=== PATIENT | male | born 1935 | race Caucasian/White ===

== ENCOUNTER 2023-01-01 07:42 | Inpatient (IN) | payer MEDICARE, OTHER ==
[~2023-01-01] VITALS: Ht 182.9 cm; Wt 86.2 kg
[2023-01-01 07:00] VITALS: BP 158/87
--- NOTE | 2023-01-01 07:45 | NUR ---
RT CALLED FOR PT
--- NOTE | 2023-01-01 07:55 | NUR ---
[id number] DESATURATION "92%" HIGH FLOW NC ON SCENE. 95% RA ON ARRIVAL.[id number] DESATURATION "92%" HIGH FLOW NC ON SCENE. 95% RA ON ARRIVAL.
[2023-01-01] MEDS ORDERED: IV NS 0.9% 1,000 ML BAG IV ONE (08:00)
[2023-01-01 08:15] LABS: BASOPHILS # (AUTO) 0.1 K/uL (0.0-0.2); BASOPHILS % (AUTO) 0.5 % (0.0-2.0); HEMATOCRIT 36 % (39-51); HEMOGLOBIN 11.9 g/dL (13.5-17.5); LYMPHOCYTES % (AUTO) 9.4 % (20.0-44.0); MEAN CORPUSCULAR HGB CONC 33 g/dl (31.0-36.0); MEAN CORPUSCULAR VOLUME 100 fL (80-96); MONOCYTES # (AUTO) 0.6 K/uL (0.1-1.30); MONOCYTES % (AUTO) 6.3 % (2.0-12.0); NEUTROPHILS # (AUTO) 8.2 K/uL (1.8-8.9); NEUTROPHILS % (AUTO) 80.8 % (43.0-81.0); PLATELET COUNT (AUTO) 325 K/uL (150-450); RED BLOOD CELL COUNT(AUTO) 3.64 MIL/uL (4.5-6.0); WHITE BLOOD COUNT (AUTO) 10.2 K/uL (4.3-11.0)
[2023-01-01 08:19] LABS: CALCIUM, SERUM 8.7 mg/dL (8.5-10.1); CARBON DIOXIDE 37 mmol/L (21-32); CHLORIDE 103 mmol/L (98-107); GLUCOSE 124 mg/dL (74-106); POTASSIUM 4.1 mmol/L (3.5-5.1); SODIUM SERUM 142 mmol/L (136-145); UREA NITROGEN, BLOOD 20 mg/dL (7-18)
[2023-01-01 08:25] LABS: ALANINE AMINOTRANSFERASE 19 U/L (12-78); ALBUMIN 2.6 g/dL (3.4-5.0); ALKALINE PHOSPHATASE 75 U/L (46-116); ASPARTATE AMINOTRANSFERASE 26 U/L (15-37); BILIRUBIN,DIRECT 0.2 mg/dL (0.0-0.2); BILIRUBIN,TOTAL 0.4 mg/dL (0.2-1.0); TOTAL PROTEIN, SERUM 6.2 g/dL (6.4-8.2)
--- NOTE | 2023-01-01 08:25 | NUR ---
URINE COLLECTED AND SENT TO LAB
--- NOTE | 2023-01-01 08:26 | NUR ---
URINE SENT TO LAB
--- NOTE | 2023-01-01 08:26 | NUR ---
COVID SWAB SENT TO LAB
--- NOTE | 2023-01-01 08:28 | NUR ---
covid swab taken sent to lab
[2023-01-01 09:00] LABS: ABG BASE EXCESS 7.5 mmol/L; ABG PO2 63.9 mmHg (75.0-100.0); COHb 0.7 % (0.5-1.5); MetHb 0.2 % (0.0-1.5); O2Hb 89.5 % (94.0-97.0); SITE, ABG Left Radial; VENT MODE, BG 5 LPM NC
[2023-01-01 09:10] LABS: BILIRUBIN,URINE NEGATIVE (NEGATIVE); COLOR,URINE YELLOW (YELLOW); LEUKOCYTE ESTERASE ,URINE TRACE (NEGATIVE); NITRITE, URINE NEGATIVE (NEGATIVE); PROTEIN,URINE NEGATIVE (NEGATIVE); UGLUCOSE NEGATIVE (NEGATIVE)
[2023-01-01] MEDS ORDERED: ATOR40TA GT (09:21)
[2023-01-01] MEDS ORDERED: POLY17PO4 GT (09:21)
[2023-01-01] MEDS ORDERED: VALP250S4 GT ×2 (09:21)
[2023-01-01] MEDS ORDERED: LACT1CAP71 GT (09:21)
[2023-01-01] MEDS ORDERED: APIX2.5T GT (09:21)
[2023-01-01] MEDS ORDERED: FAMO20TA8 GT (09:21)
[2023-01-01] MEDS ORDERED: ONDA4TAB5 GT (09:21)
[2023-01-01] MEDS ORDERED: ASCO-352 GT (09:21)
[2023-01-01] MEDS ORDERED: INSU100V7 SQ (09:21)
[2023-01-01] MEDS ORDERED: QUET25TA GT ×2 (09:21)
[2023-01-01] MEDS ORDERED: BISA10SU11 RC (09:21)
[2023-01-01] MEDS ORDERED: ACET-868 GT (09:21)
[2023-01-01] MEDS ORDERED: IPRA3AMP23 IH (09:21)
[2023-01-01] MEDS ORDERED: LEVE1000 GT (09:21)
[2023-01-01] MEDS ORDERED: INSU100V3 SQ (09:21)
[2023-01-01] MEDS ORDERED: ACET100V5 NEB (09:21)
[2023-01-01] MEDS ORDERED: METO25TA20 GT (09:21)
[2023-01-01] MEDS ORDERED: ZINC50TA65 GT (09:21)
[2023-01-01] MEDS ORDERED: AMIO200T5 GT (09:21)
[2023-01-01] MEDS ORDERED: MODAFINIL GT (09:21)
[2023-01-01] MEDS ORDERED: NUT.237L30 GT (09:21)
[2023-01-01] MEDS ORDERED: SENN-261 GT (09:21)
[2023-01-01] MEDS ORDERED: ACETAMINOPHEN 325 MG TABLET PO PRN (09:30)
[2023-01-01] MEDS ORDERED: MAGNESIUM HYDROXIDE 30 ML UDC PO PRN (09:30)
[2023-01-01] MEDS ORDERED: ONDANSETRON HCL/PF 4 MG/2 ML VIAL IVP PRN (09:30)
[2023-01-01] MEDS ORDERED: ZOLPIDEM TARTRATE 5 MG TABLET PO PRN (09:30)
[2023-01-01] MEDS ORDERED: Z GUARD REMEDY 4 OZ OINT TP PRN (09:30)
[2023-01-01] MEDS ORDERED: MAG HYDROX/AL HYDROX/SIMETH 30 ML UDC PO PRN (09:30)
[2023-01-01 09:35] LABS: BACTERIA,URINE Many /HPF (None Seen); RBC,URINE 0-2 /HPF (0-2); SQUAMOUS EPITHELIAL CELL,UR Rare /HPF (None Seen)
[2023-01-01] MEDS ORDERED: CEFTRIAXONE 1GM BAG (ER ONLY) 50 ML IV ONE (10:09)
--- NOTE | 2023-01-01 10:13 | NUR ---
NO SOB NO DISTRESS
[2023-01-01] MEDS ORDERED: CEFTRIAXONE 1GM BAG (ER ONLY) 1 GM/50 ML PIGGYBACK IV ONE (10:30)
--- NOTE | 2023-01-01 11:40 | NUR ---
REPORT GIVEN TO LENA JOHNSON.
--- NOTE | 2023-01-01 14:00 | NUR ---
ASSEMBLER RADIO AND ELECTRICALBOX TRUCK DRIVER NOTES PATIENT ADMITTED FROM ER WITH THE C/O OF DESATURATING O2 SAT FROM SNIF OF 85% , DX OF ACUTE HYPOXEMIC RESPIRATORY FAILURE , CAME IN VIA GURNEY WITH FAMILY AND ER STAFF , KEPT COMFORTABLE TO BED , BODY ASSESSMENT DONE AND PHOTOS TAKEN , IV ACCESS ON THE RIGHT HAND WITH G#20 SALINE LOCK , PATENT AND INTACT , WITH MCKEE CATHETER ON WITH YELLOW COLORED URINE , ALL ORDERS NOTED , ADMISSION INTERVENTIONS STARTED . SAFETY MEASURES PROVIDED , SIDERAILS UP X 2 , KEPT DRY AND CLEAN AND WILL CONTINUE TO MONITOR ,
[2023-01-01] MEDS: LORAZEPAM INJ 2 MG/ML VIAL IV ONE ×2 (14:26→14:29)
--- NOTE | 2023-01-01 14:29 | NUR ---
RN NOTES PATIENT NOTED TO VERY AGITATED AND CLIMBING OUT OF BED , WITH ORDER OF ATIVAN IV INJECTION 1 MG X 1 AND FAMILY REFUSED HAVE THE ATIVAN
[2023-01-01] MEDS ORDERED: BISACODYL SUPP (10 MG) 10 MG/SUPP.RECT SUPP.RECT RC PRN (16:00)
[2023-01-01] MEDS ORDERED: SENNOSIDES 8.6 MG TABLET GT PRN (16:00)
[2023-01-01] MEDS ORDERED: GLUCERNA 1.2 1,000 ML BOTTLE NG PRN (16:30)
[2023-01-01] MEDS: FUROSEMIDE 40 MG/4 ML VIAL IV SCH ×2 (16:52→20:58)
[2023-01-01] MEDS ORDERED: LORAZEPAM INJ 2 MG/ML VIAL IV ONE (17:00)
[2023-01-01] MEDS ORDERED: ONDANSETRON 4 MG TAB.RAPDIS GT PRN (17:00)
[2023-01-01] MEDS: METOPROLOL TARTRATE 25 MG TABLET GT SCH (17:25)
[2023-01-01] MEDS: QUETIAPINE FUMARATE 25 MG TABLET GT SCH (17:25)
[2023-01-01] MEDS: FAMOTIDINE (20 MG) 20 MG TABLET GT SCH (17:25)
[2023-01-01] MEDS: BLOOD SUGAR DIAGNOSTIC 1 EACH STRIP IN SCH ×2 (17:26→23:56)
[2023-01-01] MEDS: VALPROIC ACID 250 MG/5 ML UDC GT SCH ×2 (17:27→22:00)
[2023-01-01] MEDS: APIXABAN 2.5 MG TABLET GT SCH (17:28)
--- NOTE | 2023-01-01 19:40 | NUR ---
POWER WASHER OPENING NOTE RECEIVED PATIENT IN BED AWAKE, AND RESTLESS. PT APHASIC, ON O2 @5 LITERS VIA NC WITH O2 SATURATION OF 96%. NO SOB OR DISTRESS NOTED. NO SIGNS AND SYMPTOMS OF PAIN AND DISCOMFORT NOTED. IV ACCESS TO RIGHT HAND WITH G#20 ,SALINE LOCKED, IV PATENT AND INTACT. PT JUST PULLED HIS G TUBE FEEDING. MD KAUR, AND CHARGE NURSE RICKEY MADE AWARE. MCKEE CATHETER INSERTED TO G-TUBE SITE TO KEEP IT FROM CLOSING UP. ORDER RECEIVED FROM FOR ATIVAN 1 MG Q6 HRS PRN. ORDER IMPLEMENTED, AND CARRIED OUT. SAFETY MEASURES PROVIDED. BED IN LOW POSITION, SIDE RAILS UP X 2, HOB ELEVATED, CALL LIGHT WITHIN REACH. WILL CONTINUE TO MONITOR PT.
[2023-01-01 20:00] VITALS: BP 136/79
--- NOTE | 2023-01-01 20:07 | NUR ---
CARD SERVICES SPECIALIST CLOSING NOTES PATIENT IN BED ASLEEP AT THIS TIME BUT AROUSABLE , APHASIC , ON O2 @5 LITERS WITH SATURATION OF 96% , NO SOB OR DISTRESS NOTED , NO SIGNS AND SYMPTOMS OF PAIN AND DIS COMFOR T NOTED , KEPT COMFORTABLE TO BED , IV ACCESS ON THE RIGHT HAND WITH G#20 SALINE LOCK , PATENT AND INTACT , MCKEE WAS DISCONTINUE AND FOR NO INDICATIONS WITH NO S/S OF BLEEDING UPON REMOVAL , ALL DUE MEDS ORDERED , LASIX GIVEN PATIENT NOTED WITH CONGESTION, G TUBE FEEDING STARTED WITH GLUCERNA 1.2@ 80CC. HOUR , 1800 BS WAS CHECK AND RESULT OF 66 AND ORANGE JUICE GIVEN AND BS CHECK WAS CHECK AGAIN ROUND 1900 AND WITH RESULT OF 122 . SAFETY MEASURES PROVIDED , SIDE RAILS UP X 2 , KEPT DRY AND CLEAN AND ENDORSED TO THE NEXT SHIFT
[2023-01-01] MEDS: IPRATROPIUM NEB FS 0.5 MG/2.5 ML AMPUL.NEB NEB SCH (20:30)
[2023-01-01] MEDS: ALBUTEROL FS 2.5 MG/0.5 ML VIAL.NEB NEB SCH (20:30)
[2023-01-01] MEDS: ACETYLCYSTEINE 10% SOLN 400 MG/4 ML VIAL HHN SCH (20:30)
[2023-01-01] MEDS: LEVETIRACETAM SOL (5 ML) 100 MG/ML UDC GT SCH (21:00)
[2023-01-01] MEDS ORDERED: CEFTRIAXONE 1 G in IV D5W 50 ML IV SCH (21:00)
[2023-01-01] MEDS: ATORVASTATIN 40 MG TABLET GT SCH (22:00)
[2023-01-01] MEDS: INSULIN GLARGINE, 100 UNIT/ML CARTRIDGE SQ SCH (22:00)
--- NOTE | 2023-01-01 22:00 | NUR ---
TECHNICAL SUPPORT INTERNSHIP NOTE PT DID RECEIVE KEPPRA JAMIE 1000 MG, DEPAKENE SYRUP 375 MG, LIPITOR 80 MG DUE TO PT PULLED HIS G-TUBE OUT. MEDS ARE TO BE GIVEN THRU G-TUBE.
--- NOTE | 2023-01-01 23:31 | NUR ---
PATIENT ACCOUNT REPRESENTATIVE NOTE PT IS VERY AGITATED, AND RESTLESS. ATIVAN ADMINISTERED TO PT FOR AGITATION. PT ON BILATERAL SOFT WRIST RESTRAINTS FOR SAFETY.
[2023-01-02] VITALS: BP 147/79
[2023-01-02] MEDS: IPRATROPIUM NEB FS 0.5 MG/2.5 ML AMPUL.NEB NEB SCH ×4 (02:20→14:24)
[2023-01-02] MEDS: ALBUTEROL FS 2.5 MG/0.5 ML VIAL.NEB NEB SCH ×4 (02:20→14:24)
[2023-01-02] MEDS: ACETYLCYSTEINE 10% SOLN 400 MG/4 ML VIAL HHN SCH ×6 (02:21→19:58)
[2023-01-02 04:00] VITALS: BP 158/77
--- NOTE | 2023-01-02 06:19 | NUR ---
RADIOLOGY ASST CLOSING NOTE LEFT PATIENT IN BED SLEEPING. PT APHASIC, ON O2 @5 LITERS VIA NC WITH O2 SATURATION OF 96%. NO SOB OR DISTRESS NOTED. NO SIGNS AND SYMPTOMS OF PAIN AND DISCOMFORT NOTED. IV ACCESS TO RIGHT HAND WITH G#20 ,SALINE LOCKED, IV PATENT AND INTACT. NO TUBE FEEDING IN PLACE. SAFETY MEASURES PROVIDED. BED IN LOW POSITION, SIDE RAILS UP X 2, HOB ELEVATED, CALL LIGHT WITHIN REACH. WILL CONTINUE TO MONITOR PT.
[2023-01-02 06:21] LABS: BASOPHILS % (AUTO) 0.4 % (0.0-2.0); EOSINOPHILS % (AUTO) 0.9 % (0.0-6.0); HEMATOCRIT 40 % (39-51); HEMOGLOBIN 12.9 g/dL (13.5-17.5); LYMPHOCYTES # (AUTO) 1.1 K/uL (0.8-4.8); LYMPHOCYTES % (AUTO) 12.4 % (20.0-44.0); MEAN CORPUSCULAR HGB CONC 33 g/dl (31.0-36.0); MEAN CORPUSCULAR VOLUME 99 fL (80-96); MONOCYTES # (AUTO) 0.7 K/uL (0.1-1.30); MONOCYTES % (AUTO) 7.4 % (2.0-12.0); NEUTROPHILS # (AUTO) 7.1 K/uL (1.8-8.9); NEUTROPHILS % (AUTO) 78.9 % (43.0-81.0); PLATELET COUNT (AUTO) 317 K/uL (150-450); RED BLOOD CELL COUNT(AUTO) 4.01 MIL/uL (4.5-6.0)
[2023-01-02 06:34] LABS: ALANINE AMINOTRANSFERASE 16 U/L (12-78); ALBUMIN 2.9 g/dL (3.4-5.0); ALKALINE PHOSPHATASE 69 U/L (46-116); ASPARTATE AMINOTRANSFERASE 27 U/L (15-37); BILIRUBIN,TOTAL 0.6 mg/dL (0.2-1.0); CALCIUM, SERUM 9.1 mg/dL (8.5-10.1); CARBON DIOXIDE 38 mmol/L (21-32); CHLORIDE 102 mmol/L (98-107); CREATININE 0.9 mg/dL (0.6-1.3); GLUCOSE 111 mg/dL (74-106); MAGNESIUM 2.1 mg/dL (1.8-2.4); PHOSPHORUS 2.9 mg/dL (2.5-4.9); POTASSIUM 3.2 mmol/L (3.5-5.1); SODIUM SERUM 146 mmol/L (136-145); UREA NITROGEN, BLOOD 17 mg/dL (7-18)
[2023-01-02 07:00] VITALS: BP 150/84
[2023-01-02] MEDS ORDERED: PANTOPRAZOLE 40 MG TABLET.DR PO SCH (07:30)
--- NOTE | 2023-01-02 07:48 | NUR ---
RN OPENING NOTE RECEIVED PT AWAKE, A/O X0, APHASIC. PT IS ON 5L OF O2 VIA NC, NO S/S OF SOB OR DISTRESS NOTED. NO S/S OF PAIN VIA FLACC NOTED. IV ACCESS AT RIGHT HAND #20 ,SALINE LOCKED, IV PATENT AND INTACT. NO TUBE FEEDING IN PLACE, PER PM RN, PT PULLED G-TUBE AT BEGINNING OF PM SHIFT, MD AND TURNAROUND ENGINEER AWARE. PT ON BILATERAL SOFT RESTRAINTS, NO SKIN ISSUES NOTED ON BOTH WRIST. SAFETY MEASURES IN PLACE, HOB ELEVATED, CALL LIGHT WITHIN REACH, WILL CONT WITH PLAN OF CARE DURING SHIFT Addendum: 01/02/23 at 0753 by RICH DIALLO RN TELE MONITOR READS SR, HR= 69 Addendum: 01/02/23 at 0759 by RICH DIALLO RN MCKEE CATH PLACED ON THE G-TUBE SITE FOR NOW TO KEEP PATENT
[2023-01-02] MEDS ORDERED: MAGNESIUM HYDROXIDE 30 ML UDC GT PRN (08:20)
[2023-01-02] MEDS ORDERED: ZOLPIDEM TARTRATE 5 MG TABLET GT PRN (08:20)
[2023-01-02] MEDS ORDERED: MAG HYDROX/AL HYDROX/SIMETH 30 ML UDC GT PRN (08:21)
[2023-01-02] MEDS ORDERED: ACETAMINOPHEN 650 MG/20.3 ML UDC GT PRN (08:22)
--- NOTE | 2023-01-02 08:27 | NUR ---
WOUND CARE CONSULT: PT PRESENTS WITH SOME SACRAL SCARRING AND SCROTAL REDNESS, PRESENT ON ADMISSION. RECOMMENDATIONS MADE FOR SKIN PROTECTION. DISCUSSED WITH NURSING STAFF. MD IN AGREEMENT WITH PLAN OF CARE.
[2023-01-02] MEDS: ASCORBIC ACID 500 MG TABLET GT SCH (09:00)
[2023-01-02] MEDS: POLYETHYLENE GLYCOL 3350 17 GM POWD.PACK GT SCH (09:00)
[2023-01-02] MEDS: APIXABAN 2.5 MG TABLET GT SCH ×2 (09:00→16:42)
[2023-01-02] MEDS: PANTOPRAZOLE 40 MG/PACK PACK GT SCH (09:00)
[2023-01-02] MEDS: LEVETIRACETAM SOL (5 ML) 100 MG/ML UDC GT SCH ×2 (09:00→21:00)
[2023-01-02] MEDS: FAMOTIDINE (20 MG) 20 MG TABLET GT SCH ×2 (09:00→16:43)
[2023-01-02] MEDS: AMIODARONE HCL 200 MG TABLET GT SCH (09:00)
[2023-01-02] MEDS: ZINC SULFATE 220 MG CAPSULE GT SCH (09:00)
[2023-01-02] MEDS: LACTOBACILLUS RHAMNOSUS GG 1 EACH CAP.SPRINK GT SCH (09:00)
[2023-01-02] MEDS: MODAFINIL 100 MG TABLET GT SCH (09:00)
[2023-01-02] MEDS: VALPROIC ACID 250 MG/5 ML UDC GT SCH ×3 (09:00→22:00)
[2023-01-02] MEDS: METOPROLOL TARTRATE 25 MG TABLET GT SCH ×2 (09:00→16:43)
[2023-01-02] MEDS: QUETIAPINE FUMARATE 25 MG TABLET GT SCH ×2 (09:00→17:35)
[2023-01-02] MEDS ORDERED: POTASSIUM CHLORIDE 20 MEQ POWDER PACKET GT ONE (09:00)
--- NOTE | 2023-01-02 09:24 | NUR ---
RN NOTES: PT G-TUBE DISLODGED, ASKED PHARM AND MD TO CHANGE GT MEDS TO IV IF POSSIBLE, PENDING.
[2023-01-02] MEDS: POTASSIUM CL. PREMIX PERIPHER. 50 ML IV SCH ×4 (10:02→14:01)
[2023-01-02] MEDS: LORAZEPAM INJ 2 MG/ML VIAL IV PRN ×2 (11:08→17:20)
[2023-01-02] MEDS: BLOOD SUGAR DIAGNOSTIC 1 EACH STRIP IN SCH ×3 (11:45→23:52)
[2023-01-02 12:00] VITALS: BP 152/75
--- NOTE | 2023-01-02 13:05 | NUR ---
RN NOTES: PT TRANSPORTED TO SURGERY VIA GURNEY BY OR STAFF, PT ASLEEP BUT EASILY ROUSED, VITALS WNL, O2 SAT @ 97% ON 5 L O2, WILL STAY AT PT'S ROOM.
--- NOTE | 2023-01-02 13:44 | NUR ---
TX NOT GIVEN DUE TO PATIENT NOT IN THE UNIT. PATIENT WENT FOR SURGERY ACCORDING PATIENT FAMILY MEMBER. Addendum: 01/02/23 at 1345 by SELVIN COVARRUBIAS RT Amended: Links added.
--- NOTE | 2023-01-02 14:00 | NUR ---
RN NOTES: PT CAME BACK TO UNIT VIA GURCHRISTOPH, PROCEDURE HAS BEEN RESCHEDULED TO 01/03/23 WITH NO SPECIFIC TIME, MADE CLERICAL SUPERVISOR AND MD AWARE.
[2023-01-02] MEDS ORDERED: ANESTHESIA TRAY IN PYXIS 1 EA TRAY MC ONE (14:33)
[2023-01-02 16:00] VITALS: BP 161/95
[2023-01-02] MEDS ORDERED: hydrALAZINE HCL IV 20 MG VIAL IV PRN (17:00)
[2023-01-02] MEDS ORDERED: IV D5/ 0.9% NACL 1,000 ML IV PRN (17:00)
--- NOTE | 2023-01-02 17:05 | NUR ---
RN NOTES: RN PULLED ATIVAN VIAL, COUNTED ALL VIALS AND RECORDED PARTIAL WASTE WITH ANOTHER RN. ONCE FRIDGE IS CLOSED, THIS RN DID NOT REALIZE THAT A BAG OF ATIVAN VIALS WAS LEFT OUTSIDE ON TOP OF COUNTER. UPON REALIZING THIS RN TRIED TO PULL ANOTHER ONE IN AN ATTEMPT TO RETURN THE BAG WITH ATIVAN VIALS IN THE FRIDGE HOWEVER THE SYSTEM PROMPTED TO DO PARTIAL WASTE AGAIN. RN DID NOT PULL ANOTHER VIAL INSTEAD RETURNED ALL THE BAG WITH VIALS. RN CALLED PHARMACIST TO ASSIST WITH ERROR. PER PHARMACIST, GLOBAL PROGRAM DIRECTOR NEEDS TO DO CYCLE COUNT HOWEVER CHARGE DOESN'T HAVE AUTHORIZATION AT THE MOMENT. WE WILL WAIT FOR PM GLOBAL PROGRAM DIRECTOR TO DO CYCLE COUNT, MADE PHARMACIST AWARE. FIRST TRANSACTION, THERE WERE 11 VIALS, PULLED 1, LEAVING 10 VIALS. SECOND TRANSACTION THERE WERE 10 VIALS, PULLED 0, STILL LEAVING 10 VIALS HOWEVER THE SYSTEM IS SHOWING THERE ARE ONLY 9 VIALS LEFT PENDING CYCLE COUNT AFTER GLOBAL PROGRAM DIRECTOR REPORT.
--- NOTE | 2023-01-02 19:07 | NUR ---
RECEIVED PT AWAKE, A/O X0, APHASIC. PT IS ON 5L OF O2 VIA NC, NO S/S OF SOB OR DISTRESS NOTED. NO S/S OF PAIN VIA FLACC NOTED. TELE MONITOR READS SR, HR= 69. IV ACCESS AT RIGHT HAND #20, RUNNING D5NS @ 75ML/HR. NO TUBE FEEDING IN PLACE, PER PM RN, PT PULLED G-TUBE AT BEGINNING OF PM SHIFT, MCKEE CATH PLACED ON THE G-TUBE SITE FOR NOW TO KEEP PATENT MD AND HARDWARE TEST ENGINEER AWARE. PT ON BILATERAL SOFT RESTRAINTS, NO SKIN ISSUES NOTED ON BOTH WRIST. KEPT PT CLEAN, DRY AND COMFORTABLE. SAFETY MEASURES IN PLACE, HOB ELEVATED, CALL LIGHT WITHIN REACH, ENDORSE TO PM SHIFT. Addendum: 01/02/23 at 1917 by RICH DIALLO RN SHEEPSKIN PICKLER CLOSING NOTES:
--- NOTE | 2023-01-02 19:30 | NUR ---
DAY PORTER OPENING NOTE RECEIVED PATIENT IN BED AWAKE, AND RESTLESS. PT APHASIC, ON O2 @5 LITERS VIA NC WITH O2 SATURATION OF 95%. NO SOB OR DISTRESS NOTED. NOTED RESTLESS, AND MOVING CONSTANTLY. IV ACCESS TO LEFT HAND WITH G#20 RUNNING D5 NS AT 75 ML/HR. PATENT AND INTACT. ALL SAFETY MEASURES PROVIDED.HEAD OF THE BED ELEVATED. BILATERAL WRIST RESTRAIN IN PLACE . NO GTUBE IN PLACE. AWAITING FOR GTUBE PLACEMENT. SKIN CHECKS DONE FREQUENTLY. BED IN LOW POSITION, LOCKED. SIDE RAILS UP X 2, HOB ELEVATED, CALL LIGHT WITHIN REACH. WILL CONTINUE TO MONITOR PT.
--- NOTE | 2023-01-02 20:56 | NUR ---
RN NOTES PATIENT ANXIOUS AND MOVED CONSTANTLY. RESTLESS. ATIVAN WAS GIVEN AT 1720. NOT EFFECTIVE. ORDER FOR ATIVAN IS 1 MG PRN EVERY 6 HOURS. INFORMED DNP VIC, NEW ORDER OF ATIVAN 1 MG IV ONCE GIVEN AT 2055. ORDER NOTED AND CARRIED OUT.
[2023-01-02] MEDS ORDERED: LORAZEPAM INJ 2 MG/ML VIAL IV ONE (21:00)
[2023-01-02] MEDS: CEFEPIME 1 GM in IV D5W 50 ML IV SCH (21:09)
[2023-01-02] MEDS: INSULIN GLARGINE, 100 UNIT/ML CARTRIDGE SQ SCH (22:00)
[2023-01-02] MEDS: ATORVASTATIN 40 MG TABLET GT SCH (22:00)
--- NOTE | 2023-01-02 22:00 | NUR ---
RN NOTES HELD LANTUS 30 UNITS. BLOOD SUGAR CHECKED IT 142. NO GTUBE FEEDING.
[2023-01-02] MEDS: VANCOMYCIN 1 GM in IV D5W 250 ML IV SCH (22:20)
--- NOTE | 2023-01-03 | NUR ---
RN NOTES HELD REGULAR INSULIN ADMINISTARTION, BLOOD SUGAR RESULT WAS 156, PATIENT NOT GETTING GTUBE FEEDING.
[2023-01-03] MEDS: ALBUTEROL FS 2.5 MG/0.5 ML VIAL.NEB NEB SCH ×4 (01:15→20:33)
[2023-01-03] MEDS: ACETYLCYSTEINE 10% SOLN 400 MG/4 ML VIAL HHN SCH ×4 (01:15→20:33)
[2023-01-03] MEDS: IPRATROPIUM NEB FS 0.5 MG/2.5 ML AMPUL.NEB NEB SCH ×4 (01:15→20:33)
[2023-01-03] MEDS: CEFEPIME 1 GM in IV D5W 50 ML IV SCH ×3 (04:06→20:15)
[2023-01-03] MEDS: BLOOD SUGAR DIAGNOSTIC 1 EACH STRIP IN SCH ×4 (05:35→23:33)
[2023-01-03 06:38] LABS: BASOPHILS % (AUTO) 0.3 % (0.0-2.0); EOSINOPHILS % (AUTO) 3.3 % (0.0-6.0); HEMATOCRIT 40 % (39-51); HEMOGLOBIN 13.1 g/dL (13.5-17.5); LYMPHOCYTES # (AUTO) 1.2 K/uL (0.8-4.8); LYMPHOCYTES % (AUTO) 11.7 % (20.0-44.0); MEAN CORPUSCULAR HGB CONC 33 g/dl (31.0-36.0); MEAN CORPUSCULAR VOLUME 100 fL (80-96); MONOCYTES # (AUTO) 0.8 K/uL (0.1-1.30); MONOCYTES % (AUTO) 7.9 % (2.0-12.0); NEUTROPHILS # (AUTO) 7.9 K/uL (1.8-8.9); NEUTROPHILS % (AUTO) 76.8 % (43.0-81.0); PLATELET COUNT (AUTO) 316 K/uL (150-450); RED BLOOD CELL COUNT(AUTO) 4.01 MIL/uL (4.5-6.0); WHITE BLOOD COUNT (AUTO) 10.3 K/uL (4.3-11.0)
[2023-01-03 07:00] LABS: CALCIUM, SERUM 9.1 mg/dL (8.5-10.1); CREATININE 0.8 mg/dL (0.6-1.3); MAGNESIUM 2.1 mg/dL (1.8-2.4); PHOSPHORUS 2.4 mg/dL (2.5-4.9); POTASSIUM 3.4 mmol/L (3.5-5.1)
--- NOTE | 2023-01-03 07:45 | NUR ---
OPENING RESIDENTIAL ROOFER HELPER NOTE Received patient asleep, but easily arousable in bed with tele monitor showing sinus rythym in the 70s. Patient is restrained at both wrists with soft wrist restraints, bed brakes locked, three bed side rails up and padded with blankets, bed in lowest position; and with bed alarm on. Patient seems entirely disoriented, not even responding to his name. 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 Night nurse reported that plan is to try again today to insert a new G-tube surgically, which was attempted,but not successful yesterday. Maintaining NPO status. Speech therapy swallow evaluation pending to see if patient might be able to swallow meds. Will continue to care for patient and monitor as per hospitalist provider POC.
--- NOTE | 2023-01-03 07:45 | NUR ---
MOBILE SALES ASSISTANT CLOSING NOTE PATIENT IN BED AWAKE, AND RESTLESS. PT APHASIC, ON O2 @5 LITERS VIA NC WITH O2 SATURATION OF 95%. NO SOB OR DISTRESS NOTED. NOTED RESTLESS, AND MOVING CONSTANTLY. IV ACCESS TO LEFT HAND WITH G#20 RUNNING D5 NS AT 75 ML/HR. PATENT AND INTACT. ALL SAFETY MEASURES PROVIDED.HEAD OF THE BED ELEVATED. BILATERAL WRIST RESTRAIN IN PLACE . NO GTUBE IN PLACE. AWAITING FOR GTUBE PLACEMENT. SKIN CHECKS DONE FREQUENTLY. BED IN LOW POSITION, LOCKED. SIDE RAILS UP X 2, HOB ELEVATED, CALL LIGHT WITHIN REACH. WILL ENDORSE FOR LILLIAN.
[2023-01-03 08:00] VITALS: BP 163/107
[2023-01-03] MEDS: VALPROIC ACID 250 MG/5 ML UDC GT SCH ×3 (09:00→21:40)
[2023-01-03] MEDS: LACTOBACILLUS RHAMNOSUS GG 1 EACH CAP.SPRINK GT SCH ×2 (09:00→17:47)
[2023-01-03] MEDS: APIXABAN 2.5 MG TABLET GT SCH ×2 (09:00→18:13)
[2023-01-03] MEDS: AMIODARONE HCL 200 MG TABLET GT SCH (09:00)
[2023-01-03] MEDS: QUETIAPINE FUMARATE 25 MG TABLET GT SCH ×2 (09:00→17:47)
[2023-01-03] MEDS ORDERED: POTASSIUM CHLORIDE 20 MEQ POWDER PACKET NG SCH (09:30)
[2023-01-03] MEDS: VANCOMYCIN 1 GM in IV D5W 250 ML IV SCH ×2 (10:55→21:39)
[2023-01-03] MEDS: LORAZEPAM INJ 2 MG/ML VIAL IV PRN (10:55)
[2023-01-03] MEDS ORDERED: DIATR MEGLU/DIATRIZOATE SODIUM 30 ML BOTTLE (GASTROGRAPHIN) ONE (14:27)
--- NOTE | 2023-01-03 14:30 | NUR ---
ASSISTANT PROGRAM MANAGER UPDATE NOTE Patient failed swallow evaluation with speech therapy. Patient very restless in bed, crying out, moaning, trying to break free of his restraints. MD ordered STAT KUB abd x-ray to confirm placement of catheter already existing in stoma because surgical G-tube placement not scheduled until tomorrow and patient unable to get needed medications for keeping calm without a g-tube access and attempts of IV meds have not succeeded. Plan is to use existing stoma if placement viable per x-ray in order to give patient medications to keep calm. school bus monitor discontinued by MD. Safety precautions maintained with bed side rails up x 3 and padded, bilateral soft wrist restraints on, bed brakes locked, bed alarm on, and frequent checking by staff every 30 minutes or more. Family at bedside ( and two daughters). Will continue to care for and monitor patient per MD POC.
[2023-01-03 16:00] VITALS: BP 144/69
--- NOTE | 2023-01-03 16:15 | NUR ---
MS RN UPDATE NOTE KUB x- ray confirms that catheter is in stomach. Will give PO scheduled meds via G-tube site catheter and start patient on limited tube feeding until midnight.
[2023-01-03] MEDS: LEVETIRACETAM SOL (5 ML) 100 MG/ML UDC GT SCH (17:37)
[2023-01-03] MEDS: ASCORBIC ACID 500 MG TABLET GT SCH (17:44)
[2023-01-03] MEDS: FAMOTIDINE (20 MG) 20 MG TABLET GT SCH ×2 (17:44→18:12)
[2023-01-03] MEDS: NEUTRA PHOS 1 POWD.PACKET PO SCH ×2 (17:44→18:12)
[2023-01-03] MEDS: ZINC SULFATE 220 MG CAPSULE GT SCH (17:44)
[2023-01-03] MEDS: MODAFINIL 100 MG TABLET GT SCH (17:44)
[2023-01-03] MEDS: POLYETHYLENE GLYCOL 3350 17 GM POWD.PACK GT SCH (17:46)
[2023-01-03] MEDS: PANTOPRAZOLE 40 MG/PACK PACK GT SCH (17:47)
[2023-01-03] MEDS: METOPROLOL TARTRATE 25 MG TABLET GT SCH (17:48)
--- NOTE | 2023-01-03 18:05 | NUR ---
MS RN NOTE Checked placement of g-tube site catheter with syringe air insertion auscultated with stethoscope positive for placement. Patient tolerated well the administration of 17:00hrs /18:00 hours scheduled medications with 100mLs of water via G -tube site at 18:00 hours. Only 30 mLs residual. Aspiration precautions maintained with patient's body at top of bed and HOB elevated 45 degrees. All safety precautions maintained as mentioned in previous notes today. Will start tube feeding at 19:00 hours.
[2023-01-03] MEDS: GLUCERNA 1.2 1,000 ML BOTTLE NG PRN (18:51)
--- NOTE | 2023-01-03 19:21 | NUR ---
MS RN CLOSING NOTE Patient observed to be sleeping comfortably in bed, snoring peacefully with even respirations, without any signs of distress. Started tube feeding of Glucerna 1.2 @ 30 mLs/hr x 5 hours, with plan to evaluate patient's ability to tolerate. Safety precautions maintained as previously noted in today's notes. PIV to left writst still intact, patent, receiving IV fluids and IV antibiotics. Will endorse POC to night nurse Ani for LILLIAN.
--- NOTE | 2023-01-03 19:52 | NUR ---
MS RN OPENING NOTES RECEIVED PATIENT ON BED SLEEPING, ON O2 @5 LITERS VIA NC WITH O2 SATURATION OF 95%. NO SOB OR DISTRESS NOTED. IV ACCESS TO LEFT HAND WITH G#20 RUNNING D5 NS AT 75 ML/HR. PATENT AND INTACT. BILATERAL WRIST RESTRAIN IN PLACE. AWAITING FOR GTUBE PLACEMENT. SKIN CHECKS DONE FREQUENTLY. SAFETY MEASURES PROVIDED; HEAD OF THE BED ELEVATED, BED LOCKED IN IN LOWEST POSITION, CALL LIGHT WITHIN REACH, SIDE RAILS UP X 2.
[2023-01-03 20:00] VITALS: BP 141/99
[2023-01-03] MEDS: ATORVASTATIN 40 MG TABLET GT SCH (21:39)
[2023-01-03] MEDS: INSULIN GLARGINE, 100 UNIT/ML CARTRIDGE SQ SCH (22:00)
--- NOTE | 2023-01-03 22:00 | NUR ---
RN NOTES BLOOD SUGAR RESULT 133. HELD INSULIN. NPO FOR SURGERY
--- NOTE | 2023-01-03 23:10 | NUR ---
RN NOTES PRN AMBIEN 5 MG GIVEN PER ORDER VIA GTUBE FOR INSOMNIA AT 2310.
[2023-01-04] MEDS: ACETAMINOPHEN 650 MG/20.3 ML UDC GT PRN (01:21)
[2023-01-04] MEDS: IPRATROPIUM NEB FS 0.5 MG/2.5 ML AMPUL.NEB NEB SCH ×4 (01:30→20:22)
[2023-01-04] MEDS: ALBUTEROL FS 2.5 MG/0.5 ML VIAL.NEB NEB SCH ×4 (01:30→20:22)
[2023-01-04] MEDS: ACETYLCYSTEINE 10% SOLN 400 MG/4 ML VIAL HHN SCH ×4 (01:30→20:22)
[2023-01-04] MEDS: CEFEPIME 1 GM in IV D5W 50 ML IV SCH ×3 (04:44→21:16)
[2023-01-04] MEDS: LEVETIRACETAM SOL (5 ML) 100 MG/ML UDC GT SCH ×2 (05:00→17:21)
[2023-01-04] MEDS: METOPROLOL TARTRATE 25 MG TABLET GT SCH ×2 (05:00→17:21)
--- NOTE | 2023-01-04 05:14 | NUR ---
RN NOTES MEDICATIONS FOR G-TUBE ON HOLD FOR SURGERY.
[2023-01-04] MEDS: BLOOD SUGAR DIAGNOSTIC 1 EACH STRIP IN SCH ×4 (05:16→23:57)
--- NOTE | 2023-01-04 06:39 | NUR ---
MS RN CLOSING NOTES PATIENT ON BED SLEEPING, ON O2 @5 LITERS VIA NC WITH O2 SATURATION OF 97%. NO SOB OR DISTRESS NOTED. IV ACCESS TO LEFT HAND WITH G#20 RUNNING D5 NS AT 75 ML/HR. PATENT AND INTACT. BILATERAL WRIST RESTRAIN IN PLACE. SKIN CHECKS DONE FREQUENTLY, AWAITING FOR G-TUBE PLACEMENT. ALL DUE MEDICATIONS GIVEN, ALL NEEDS ARE MET, SAFETY MEASURES PROVIDED; HEAD OF THE BED ELEVATED, BED LOCKED IN IN LOWEST POSITION, CALL LIGHT WITHIN REACH, SIDE RAILS UP X 2, WILL ENDORSE TO NEXT SHIFT FOR CONTINUITY OF CARE.
[2023-01-04 07:11] LABS: BASOPHILS # (AUTO) 0.1 K/uL (0.0-0.2); BASOPHILS % (AUTO) 0.6 % (0.0-2.0); EOSINOPHILS % (AUTO) 8.2 % (0.0-6.0); HEMATOCRIT 40 % (39-51); HEMOGLOBIN 12.8 g/dL (13.5-17.5); LYMPHOCYTES # (AUTO) 1.7 K/uL (0.8-4.8); LYMPHOCYTES % (AUTO) 15.6 % (20.0-44.0); MEAN CORPUSCULAR HGB CONC 32 g/dl (31.0-36.0); MEAN CORPUSCULAR VOLUME 100 fL (80-96); MONOCYTES # (AUTO) 0.8 K/uL (0.1-1.30); MONOCYTES % (AUTO) 7.6 % (2.0-12.0); NEUTROPHILS # (AUTO) 7.2 K/uL (1.8-8.9); PLATELET COUNT (AUTO) 305 K/uL (150-450); WHITE BLOOD COUNT (AUTO) 10.6 K/uL (4.3-11.0)
[2023-01-04 07:23] LABS: CALCIUM, SERUM 9.1 mg/dL (8.5-10.1); CARBON DIOXIDE 37 mmol/L (21-32); CHLORIDE 105 mmol/L (98-107); CREATININE 0.8 mg/dL (0.6-1.3); GLUCOSE 128 mg/dL (74-106); MAGNESIUM 2.3 mg/dL (1.8-2.4); PHOSPHORUS 3.3 mg/dL (2.5-4.9); POTASSIUM 3.5 mmol/L (3.5-5.1); SODIUM SERUM 144 mmol/L (136-145); UREA NITROGEN, BLOOD 17 mg/dL (7-18)
--- NOTE | 2023-01-04 07:29 | NUR ---
MS RN OPENING NOTES RECEIVED PT IN BED. A/O X 0, NON-VERBAL. WITH O2 VIA NC AT 5LPM, TOLERATING WELL, NO SIGNS OF ACUTE RESPIRATORY DISTRESS. WITH IV ACCESS AT LEFT HAND #20G, SL, C/D/I. WITH SOFT RESTRAINTS IN THE BILATERAL UPPER EXTREMITIES, PULSED CHECKED. NO PAIN/DISCOMFORT NOTED AT THIS TIME. WITH G-TUBE, C/D/I. PT ON NPO AT THIS TIME. SAFETY MEASURES IN PLACE: BED LOCKED AND IN LOWEST POSITION, CALL LIGHT AND TRAY TABLE WITHIN EASY REACH, SIDE RAILS X 3. WILL CONTINUE TO MONITOR.
[2023-01-04 08:00] VITALS: BP 108/64
[2023-01-04] MEDS: APIXABAN 2.5 MG TABLET GT SCH ×2 (08:43→16:27)
[2023-01-04] MEDS: AMIODARONE HCL 200 MG TABLET GT SCH (08:43)
[2023-01-04] MEDS: VALPROIC ACID 250 MG/5 ML UDC GT SCH ×4 (08:43→21:16)
[2023-01-04] MEDS: QUETIAPINE FUMARATE 25 MG TABLET GT SCH ×4 (08:44→21:16)
[2023-01-04] MEDS: FAMOTIDINE (20 MG) 20 MG TABLET GT SCH ×2 (08:44→16:26)
[2023-01-04] MEDS: POLYETHYLENE GLYCOL 3350 17 GM POWD.PACK GT SCH (08:44)
[2023-01-04] MEDS: ZINC SULFATE 220 MG CAPSULE GT SCH (08:44)
[2023-01-04] MEDS: MODAFINIL 100 MG TABLET GT SCH (08:44)
[2023-01-04] MEDS: ASCORBIC ACID 500 MG TABLET GT SCH (08:44)
[2023-01-04] MEDS: PANTOPRAZOLE 40 MG/PACK PACK GT SCH (08:44)
[2023-01-04] MEDS: VANCOMYCIN 1 GM in IV D5W 250 ML IV SCH ×2 (09:52→10:00)
--- NOTE | 2023-01-04 13:45 | NUR ---
RN NOTES CALLED DR. PEREZ TO REFER G-TUBE PLACEMENT, SAID HE CANNOT DO THE INSERTION TODAY AND NOT SURE IF HE CAN COME TOMORROW. CHARGE NURSE AND DR. KAUR INFORMED. FEEDING OF GLUCERNA 1.2 AT 30ML/HR RESUMED.
[2023-01-04 16:00] VITALS: BP 131/77
--- NOTE | 2023-01-04 18:50 | NUR ---
MS RN CLOSING NOTES PT RESTING IN BED. A/O X 0, NON-VERBAL. MAINTAINED O2 VIA NC AT 5LPM, TOLERATING WELL, NO SIGNS OF ACUTE RESPIRATORY DISTRESS WITHIN THE SHIFT. IV ACCESS AT LEFT HAND #20G, SL, C/D/I. MAINTAINED SOFT RESTRAINTS IN THE BILATERAL UPPER EXTREMITIES, PULSED CHECKED REGULARLY, NO REDNESS. TURNED AND REPOSITIONED PT. NO PAIN/DISCOMFORT NOTED WITHIN THE SHIFT. WITH G-TUBE WITH ONGOING FEEDING OF GLUCERNA 1.2 AT 30ML/HR, TOLERATING WELL. NEEDS ATTENDED. SAFETY MEASURES IN PLACE: BED LOCKED AND IN LOWEST POSITION, CALL LIGHT AND TRAY TABLE WITHIN EASY REACH, SIDE RAILS X 3. WILL ENDORSE LILLIAN TO SETTER INDUCTION HEATING EQUIPMENT.
--- NOTE | 2023-01-04 19:30 | NUR ---
MS RN OPENING NOTE PT RESTING IN BED, RESPONSIVE TO TACTILE STIMULI. A/O X0, CONFUSED, MONTSERRATIAN SPEAKING. PT ON O2 @ 5 LPM VIA NC, TOLERATING WELL. NO SOB OR S/S OF RESPIRATORY DISTRESS. BREATHING EVEN AND UNLABORED. IV ACCESS L HAND 20G, INTACT AND PATENT. WITH BILATERAL SOFT WRIST RESTRAINTS, CIRCULATION CHECKED AND WNL. WITH GTUBE RUNNING GLUCERNA 1.2 @ 30 ML/HR, TOLERATING WELL. SAFETY PRECAUTIONS IN PLACE. BED IN LOWEST LOCKED POSITION, HOB ELEVATED, SIDE RAILS UP X3, AND CALL LIGHT AND TABLE WITHIN REACH. ALL NEEDS MET AT THIS TIME.
[2023-01-04 20:00] VITALS: BP 136/77
[2023-01-04] MEDS: ATORVASTATIN 40 MG TABLET GT SCH (21:15)
[2023-01-04] MEDS: INSULIN GLARGINE, 100 UNIT/ML CARTRIDGE SQ SCH (22:00)
[2023-01-04] MEDS: VANCOMYCIN 1.25 GM in IV D5W 250 ML IV SCH (22:15)
[2023-01-05] MEDS: ACETAMINOPHEN 650 MG/20.3 ML UDC GT PRN (00:04)
--- NOTE | 2023-01-05 00:04 | NUR ---
RN NOTE ADMINISTERED TYLENOL 650 MG FOR MILD PAIN. PT NOTICED WITH FACIAL GRIMACING AND MOANING. REPOSITIONED AND MADE COMFORTABLE IN BED. ALL NEEDS MET AT THIS TIME.
[2023-01-05] MEDS: IPRATROPIUM NEB FS 0.5 MG/2.5 ML AMPUL.NEB NEB SCH ×4 (01:39→20:17)
[2023-01-05] MEDS: ACETYLCYSTEINE 10% SOLN 400 MG/4 ML VIAL HHN SCH ×4 (01:39→20:17)
[2023-01-05] MEDS: ALBUTEROL FS 2.5 MG/0.5 ML VIAL.NEB NEB SCH ×4 (01:39→20:17)
[2023-01-05] MEDS: LORAZEPAM INJ 2 MG/ML VIAL IV PRN ×2 (03:33→14:50)
--- NOTE | 2023-01-05 03:33 | NUR ---
RN NOTE PT SHOUTING AND RESTLESS, KICKING LEGS IN THE AIR, AND PULLING AGAINST RESTRAINTS. ADMINISTERED ATIVAN 1 MG FOR ANXIETY ORDERED. MADE COMFORTABLE IN BED. ALL NEEDS MET AT THIS TIME.
[2023-01-05] MEDS: CEFEPIME 1 GM in IV D5W 50 ML IV SCH (04:47)
[2023-01-05] MEDS: METOPROLOL TARTRATE 25 MG TABLET GT SCH ×2 (04:48→17:24)
[2023-01-05] MEDS: LEVETIRACETAM SOL (5 ML) 100 MG/ML UDC GT SCH ×2 (04:48→17:24)
[2023-01-05] MEDS: BLOOD SUGAR DIAGNOSTIC 1 EACH STRIP IN SCH ×3 (05:20→17:48)
[2023-01-05 06:21] LABS: BASOPHILS # (AUTO) 0.1 K/uL (0.0-0.2); BASOPHILS % (AUTO) 0.8 % (0.0-2.0); EOSINOPHILS % (AUTO) 7.2 % (0.0-6.0); HEMATOCRIT 39 % (39-51); HEMOGLOBIN 12.8 g/dL (13.5-17.5); LYMPHOCYTES # (AUTO) 1.3 K/uL (0.8-4.8); LYMPHOCYTES % (AUTO) 13.9 % (20.0-44.0); MEAN CORPUSCULAR HGB CONC 33 g/dl (31.0-36.0); MEAN CORPUSCULAR VOLUME 100 fL (80-96); MONOCYTES # (AUTO) 0.7 K/uL (0.1-1.30); MONOCYTES % (AUTO) 7.8 % (2.0-12.0); NEUTROPHILS # (AUTO) 6.6 K/uL (1.8-8.9); NEUTROPHILS % (AUTO) 70.3 % (43.0-81.0); PLATELET COUNT (AUTO) 279 K/uL (150-450); RED BLOOD CELL COUNT(AUTO) 3.91 MIL/uL (4.5-6.0); WHITE BLOOD COUNT (AUTO) 9.4 K/uL (4.3-11.0)
--- NOTE | 2023-01-05 06:45 | NUR ---
MS RN CLOSING NOTE PT RESTING IN BED, RESPONSIVE TO TACTILE STIMULI. A/O X0, CONFUSED, ESTONIAN SPEAKING. PT ON O2 @ 5 LPM VIA NC, TOLERATING WELL. NO SOB OR S/S OF RESPIRATORY DISTRESS. BREATHING EVEN AND UNLABORED. IV ACCESS RAC 20G, INTACT AND PATENT. WITH BILATERAL SOFT WRIST RESTRAINTS, CIRCULATION CHECKED AND WNL. WITH GTUBE RUNNING GLUCERNA 1.2 @ 30 ML/HR, TOLERATING WELL. ALL DUE MEDS GIVEN ORDERED. KEPT CLEAN AND DRY. TURNED AND REPOSITIONED Q2H. SAFETY PRECAUTIONS IN PLACE AT ALL TIMES. BED IN LOWEST LOCKED POSITION, HOB ELEVATED, SIDE RAILS UP X3, AND CALL LIGHT AND TABLE WITHIN REACH. ALL NEEDS MET AT THIS TIME AND WILL ENDORSE TO ONCOMING NURSE FOR LILLIAN.
[2023-01-05 06:52] LABS: CREATININE 0.7 mg/dL (0.6-1.3); MAGNESIUM 2.1 mg/dL (1.8-2.4); POTASSIUM 3.3 mmol/L (3.5-5.1)
--- NOTE | 2023-01-05 08:03 | NUR ---
RN OPENING NOTE PATIENT AWAKE IN BED RESTING, A/O X 0, NON-VERBAL. NO S/S OF PAIN NOTED AT THIS TIME. ON 5L OXYGEN VIA NC, BREATHING EVEN UNLABORED, NO DISTRESS OR SHORTNESS OF BREATH NOTED AT THIS TIME. IV ACCESS RAC #20G, INTACT PATENT AND FLUSHING WELL. FALL AND SAFETY MEASURES IN PLACE, BED ALARM ON, BED IN LOW AND LOCK POSITION, CALL LIGHT AND TABLE WITHIN EASY REACH, SIDE RAILS UP X2. WILL CONTINUE TO MONITOR.
[2023-01-05] MEDS: PANTOPRAZOLE 40 MG/PACK PACK GT SCH (09:54)
[2023-01-05] MEDS: POLYETHYLENE GLYCOL 3350 17 GM POWD.PACK GT SCH (09:54)
[2023-01-05] MEDS: VALPROIC ACID 250 MG/5 ML UDC GT SCH ×3 (09:54→21:04)
[2023-01-05] MEDS: FUROSEMIDE 100 MG/10 ML VIAL IV SCH ×2 (09:55→11:49)
[2023-01-05] MEDS: ZINC SULFATE 220 MG CAPSULE GT SCH (09:55)
[2023-01-05] MEDS: AMIODARONE HCL 200 MG TABLET GT SCH (09:55)
[2023-01-05] MEDS: FAMOTIDINE (20 MG) 20 MG TABLET GT SCH ×2 (09:55→17:23)
[2023-01-05] MEDS: ASCORBIC ACID 500 MG TABLET GT SCH (09:55)
[2023-01-05] MEDS: LACTOBACILLUS RHAMNOSUS GG 1 EACH CAP.SPRINK GT SCH (09:55)
[2023-01-05] MEDS: POTASSIUM CHLORIDE 20 MEQ TAB.PRT.SR PO SCH ×3 (09:55→12:12)
[2023-01-05] MEDS: QUETIAPINE FUMARATE 25 MG TABLET GT SCH ×3 (09:56→20:48)
[2023-01-05] MEDS: APIXABAN 2.5 MG TABLET GT SCH ×2 (09:57→17:26)
[2023-01-05 10:00] LABS: ABG BASE EXCESS 10.9 mmol/L; ABG OXYGEN SATURATION 93.4 % (92.0-98.5); ABG PCO2 63.7 mmHg (35.0-45.0); ABG PH 7.397 (7.350-7.450); AaDO2 83.6 mmHg; COHb 0.8 % (0.5-1.5); MetHb 0.2 % (0.0-1.5); O2Hb 92.5 % (94.0-97.0); SITE, ABG Left Radial
[2023-01-05] MEDS: MODAFINIL 100 MG TABLET GT SCH (10:01)
[2023-01-05] MEDS: VANCOMYCIN 1.25 GM in IV D5W 250 ML IV SCH ×2 (10:47→21:01)
--- NOTE | 2023-01-05 11:00 | NUR ---
RN NOTE PATIENT HAVE AN ORDER FOR EGD AND PEG PLACEMENT, ATTEMPT TO GET CONSENT WAS MADE BUT WAS UNABLE TO. POULTRY BONER IS HIS DAUGHTER DARY ZARATE WHICH WAS NOT AVAILABLE AT THE MOMENT. SPOKE WITH PATIENT'S GRANDDAUGHTER MARIA ANTONIA, WHICH WAS VERY UNHAPPY THAT PATIENT'S PEG WAS NOT DONE AT BEDSIDE, REASON WHY WAS NOT DONE AT BEDSIDE WAS GIVEN. DESPISE EXPLANATION SHE ASKED FOR DOCTOR INFORMATION, DOCTOR CONTACT INFORMATION WAS GIVEN. SAME EXPLANATION WAS GIVEN TO AT BEDSIDE. CONSENT WAS NOT OBTAIN FROM FAMILY THEY ARE REQUESTING AN EXPLANATION FROM THE DOCTOR. DOCTOR GALA KAUR WAS INFORMED. AWAITING FOR FAMILY TO OBTAIN CONSENT. CHARGE NURSE AWARE.
--- NOTE | 2023-01-05 18:46 | NUR ---
RN CLOSING NOTE PATIENT AWAKE IN BED RESTING, A/O X 0, NON-VERBAL. NO S/S OF PAIN NOTED AT THIS TIME. ON 3L OXYGEN VIA NC, BREATHING EVEN UNLABORED, NO DISTRESS OR SHORTNESS OF BREATH NOTED AT THIS TIME. IV ACCESS RAC #20G, INTACT PATENT AND FLUSHING WELL. SCHEDULE MEDICATIONS ADMINISTERED. SKIN CARE PROVIDED. PATIENT WAS TURNED AND REPOSITIONED PER PROTOCOL. FALL AND SAFETY MEASURES IN PLACE, BED ALARM ON, BED IN LOW AND LOCK POSITION, CALL LIGHT AND TABLE WITHIN EASY REACH, SIDE RAILS UP X2. ALL NEEDS ATTENDED AND ANTICIPATED. WILL ENDORSE TO VEHICLE MECHANIC NURSE.
[2023-01-05 20:00] VITALS: BP 143/89
--- NOTE | 2023-01-05 20:22 | NUR ---
RN OPENING NOTE PATIENT AWAKE IN BED RESTING, A/O X 0, NON-VERBAL. NO S/S OF PAIN NOTED AT THIS TIME. ON 3L OXYGEN VIA NC, BREATHING EVEN UNLABORED, NO DISTRESS OR SHORTNESS OF BREATH NOTED AT THIS TIME. IV ACCESS RAC #20G, INTACT PATENT AND FLUSHING WELL. FALL AND SAFETY MEASURES IN PLACE, BED ALARM ON, BED IN LOW AND LOCK POSITION, CALL LIGHT AND TABLE WITHIN EASY REACH, SIDE RAILS UP X2. ALL NEEDS ATTENDED AND ANTICIPATED.
[2023-01-05] MEDS: ATORVASTATIN 40 MG TABLET GT SCH (21:03)
[2023-01-05] MEDS: INSULIN GLARGINE, 100 UNIT/ML CARTRIDGE SQ SCH (21:28)
--- NOTE | 2023-01-05 23:00 | NUR ---
RN NOTE PT IV SITE NOTED WITH SOME REDNESS. IV REMOVED CATHETER INTACT. DRY DRESSING APPLIED ARM ELEVATED. WILL INSERT NEW IV ACCESS.
[2023-01-06] MEDS: BLOOD SUGAR DIAGNOSTIC 1 EACH STRIP IN SCH ×4 (00:40→17:33)
[2023-01-06] MEDS: ACETAMINOPHEN 650 MG/20.3 ML UDC GT PRN ×2 (01:49→12:17)
--- NOTE | 2023-01-06 01:50 | NUR ---
RN NOTE PRN TYLENOL GIVEN FOR MILD PAIN TOLERATED WELL.
[2023-01-06] MEDS: ALBUTEROL FS 2.5 MG/0.5 ML VIAL.NEB NEB SCH ×4 (02:17→19:32)
[2023-01-06] MEDS: IPRATROPIUM NEB FS 0.5 MG/2.5 ML AMPUL.NEB NEB SCH ×4 (02:17→19:32)
[2023-01-06] MEDS: ACETYLCYSTEINE 10% SOLN 400 MG/4 ML VIAL HHN SCH ×4 (02:18→19:32)
--- NOTE | 2023-01-06 03:08 | NUR ---
RN NOTE PT VERY AGITATED TRYING TO KICK AT STAFF AND KEEP PUTTING LEGS OVER SIDE RAILS REMOVING CLOTHING AND TRYING TO REACH FOR G TUBE. EDI DEVELOPER VIC RECEIVED NEW ORDER FOR ZYPREXA 2.5 MF IM X1.
[2023-01-06] MEDS ORDERED: OLANZAPINE 10 MG VIAL IM ONE (03:30)
[2023-01-06] MEDS: METOPROLOL TARTRATE 25 MG TABLET GT SCH ×2 (05:00→17:10)
[2023-01-06] MEDS: LEVETIRACETAM SOL (5 ML) 100 MG/ML UDC GT SCH ×2 (06:19→17:10)
--- NOTE | 2023-01-06 06:20 | NUR ---
RN NOTE NEW IV ACCESS ESTABLISHED RAC #20G FLUSHING WELL INTACT.. Addendum: 01/06/23 at 0623 by ANAHI AGUILERA RN LAC 20G
--- NOTE | 2023-01-06 06:51 | NUR ---
RN CLOSING NOTE PATIENT AWAKE IN BED RESTING, A/O X 0, NON-VERBAL. NO S/S OF PAIN NOTED AT THIS TIME. ON 3L OXYGEN VIA NC, BREATHING EVEN UNLABORED, NO DISTRESS OR SHORTNESS OF BREATH NOTED AT THIS TIME. IV ACCESS LAC #20G, INTACT PATENT AND FLUSHING WELL. FALL AND SAFETY MEASURES IN PLACE, BED ALARM ON, PT IN BILATERAL WRIST RESTRAINTS CIRCULATION CHECKED AND RESTRAINTS RELEASED Q2HRS.BED IN LOW AND LOCK POSITION, CALL LIGHT AND TABLE WITHIN EASY REACH, SIDE RAILS UP X2. PT NPO FOR EGD WITH PEG REPLACEMENT SINCE MIDNIGHT.ALL NEEDS ATTENDED AND ANTICIPATED. WILL ENDORSE CARE TO DAY SHIFT NURSE.
[2023-01-06] MEDS: APIXABAN 2.5 MG TABLET GT SCH ×3 (09:00→17:00)
[2023-01-06] MEDS: VALPROIC ACID 250 MG/5 ML UDC GT SCH ×3 (09:03→21:43)
[2023-01-06] MEDS: POLYETHYLENE GLYCOL 3350 17 GM POWD.PACK GT SCH (09:03)
[2023-01-06] MEDS: ZINC SULFATE 220 MG CAPSULE GT SCH (09:03)
[2023-01-06] MEDS: AMIODARONE HCL 200 MG TABLET GT SCH (09:03)
[2023-01-06] MEDS: PANTOPRAZOLE 40 MG/PACK PACK GT SCH (09:03)
[2023-01-06] MEDS: ASCORBIC ACID 500 MG TABLET GT SCH (09:03)
[2023-01-06] MEDS: FAMOTIDINE (20 MG) 20 MG TABLET GT SCH ×2 (09:03→17:04)
[2023-01-06] MEDS: QUETIAPINE FUMARATE 25 MG TABLET GT SCH ×4 (09:04→21:43)
[2023-01-06] MEDS: LACTOBACILLUS RHAMNOSUS GG 1 EACH CAP.SPRINK GT SCH (09:04)
[2023-01-06 09:24] LABS: BASOPHILS # (AUTO) 0.1 K/uL (0.0-0.2); BASOPHILS % (AUTO) 0.4 % (0.0-2.0); EOSINOPHILS % (AUTO) 3.7 % (0.0-6.0); HEMATOCRIT 43 % (39-51); HEMOGLOBIN 13.5 g/dL (13.5-17.5); LYMPHOCYTES # (AUTO) 1.6 K/uL (0.8-4.8); LYMPHOCYTES % (AUTO) 13.9 % (20.0-44.0); MEAN CORPUSCULAR HGB CONC 32 g/dl (31.0-36.0); MEAN CORPUSCULAR VOLUME 100 fL (80-96); MONOCYTES # (AUTO) 1.1 K/uL (0.1-1.30); MONOCYTES % (AUTO) 9.1 % (2.0-12.0); NEUTROPHILS # (AUTO) 8.6 K/uL (1.8-8.9); NEUTROPHILS % (AUTO) 72.9 % (43.0-81.0); PLATELET COUNT (AUTO) 311 K/uL (150-450); RED BLOOD CELL COUNT(AUTO) 4.26 MIL/uL (4.5-6.0); WHITE BLOOD COUNT (AUTO) 11.8 K/uL (4.3-11.0)
[2023-01-06 09:55] LABS: ALBUMIN 2.7 g/dL (3.4-5.0); BILIRUBIN,TOTAL 0.9 mg/dL (0.2-1.0); CALCIUM, SERUM 9.2 mg/dL (8.5-10.1); CREATININE 0.8 mg/dL (0.6-1.3); MAGNESIUM 2.2 mg/dL (1.8-2.4); PHOSPHORUS 2.7 mg/dL (2.5-4.9); TOTAL PROTEIN, SERUM 6.7 g/dL (6.4-8.2)
--- NOTE | 2023-01-06 10:02 | NUR ---
RN NOTE GABRIEL COOPER. PATIENT IS SCHEDULED TO HAVE PEG PLACEMENT THIS AFTERNOON.
[2023-01-06] MEDS: VANCOMYCIN 1.25 GM in IV D5W 250 ML IV SCH (10:40)
[2023-01-06 11:43] LABS: ABG BASE EXCESS 12.5 mmol/L; ABG OXYGEN SATURATION 94.7 % (92.0-98.5); ABG PCO2 49.6 mmHg (35.0-45.0); ABG PH 7.498 (7.350-7.450); ABG PO2 71.3 mmHg (75.0-100.0); AaDO2 69.8 mmHg; COHb 1.2 % (0.5-1.5); MetHb 0.1 % (0.0-1.5); O2Hb 93.5 % (94.0-97.0); SITE, ABG Right Radial; VENT MODE, BG NASAL CANNULA
[2023-01-06] MEDS ORDERED: IV D5/0.45 NACL 1,000 ML IV ONE (12:00)
[2023-01-06] MEDS ORDERED: EPHEDRINE SULFATE IV 50MG VIAL ONE (14:44)
--- NOTE | 2023-01-06 18:01 | NUR ---
END OF SHIFT SUMMARY PATIENT IS A/O X0. CONFUSED. NEW IV ACCESS PLACED ON L WRIST #22. AT BEDSIDE. S/P PEG PLACEMENT WITH DR. PEREZ. GTUBE FEEDING STARTED ON 20 ML/HR, TOLERATING FEEDING WELL. INCREASE 10 ML/HR EVERY [address] CRAWLEY WAS MADE AWARE. NO NEW ORDERS. INCONTINENCE CARE PROVIDED. COVID TEST COLLECTED AND SENT TO THE LAB. RESTRAIN ON BUE, ASSESSED PER PROTOCOL. REPOSITIONED EVERY 2 HRS FOR COMFORT. SAFETY MEASURES MAINTAINED. BED IN LOWEST POSITION, BRAKE LOCKED. SIDE RAILS UP X2. CALL LIGHT WITHIN REACH. WILL ENDORSE CONTINUITY OF CARE TO ONCOMING SHIFT.
--- NOTE | 2023-01-06 19:38 | NUR ---
RT NOTE RECEIVED PT ON 3LPM NC. TX GIVEN. NO S/S OF ACUTE RESPIRATORY DISTRESS NOTED.
--- NOTE | 2023-01-06 19:44 | NUR ---
MS RN OPENING NOTES RECEIVED PATIENT IN BED AWAKE, A/O X0, NON-VERBAL, CONFUSED, ON NASAL CANULA 3LPM, PATIENT NOT IN DISTRESS NOTED, NO SOB NOTED, PATIENT WITH SOFT RESTRAINT ON BOTH ARM, SKIN INTEGRITY IS CHECKED SKIN INTACT NO REDNESS NOTED. IV ACCESS ON RIGHT WRIST #22 SL, PATIENT ON NPO, PATIENT WITH PEG TUBE INFUSING WELL GLUCERNA 1.2 @ 30ML/HR TOLERATING WELL. SAFETY PRECAUTION IN PLACED; BED LOCKED AND IN LOWEST POSITION, CALL LIGHT WITH IN REACH, SIDE RAIL UP X3.
[2023-01-06 20:00] VITALS: BP 125/50
[2023-01-06] MEDS: VANCOMYCIN 1 GM in IV D5W 250 ML IV SCH (21:42)
[2023-01-06] MEDS: ATORVASTATIN 40 MG TABLET GT SCH (21:43)
[2023-01-06] MEDS: INSULIN GLARGINE, 100 UNIT/ML CARTRIDGE SQ SCH (22:00)
--- NOTE | 2023-01-06 22:00 | NUR ---
RN NOTES CHECKED BLOOD SUGAR RESULT IS 128. NO INSULIN NEEDED. PATIENT ON NPO
--- NOTE | 2023-01-06 23:02 | NUR ---
RN NOTES IV SITE ON RIGHT WRIST INFILTRATED. REINSERTED IV ON LEFT ARM. IV SITED NOTED TO BE INTACT, PATENT, FLUSHING WELL.
[2023-01-07] MEDS: IPRATROPIUM NEB FS 0.5 MG/2.5 ML AMPUL.NEB NEB SCH ×4 (00:35→20:00)
[2023-01-07] MEDS: ALBUTEROL FS 2.5 MG/0.5 ML VIAL.NEB NEB SCH ×4 (00:35→20:00)
[2023-01-07] MEDS: ACETYLCYSTEINE 10% SOLN 400 MG/4 ML VIAL HHN SCH ×4 (00:41→20:00)
[2023-01-07] MEDS: ACETAMINOPHEN 650 MG/20.3 ML UDC GT PRN ×2 (01:32→20:15)
--- NOTE | 2023-01-07 03:40 | NUR ---
RN NOTES PATIENT DID NOT HAVE URINE OUTPUT BLADDER SCANNED THE PATIENT THERE IS MORE THAN 400ML SEEN. WELL DRILLER STEVIE HO WAS INFORMED. ORDER OF INSERTION OF MCKEE CATHETER IS RECEIVED AND CARRIED OUT.
[2023-01-07] MEDS: LORAZEPAM INJ 2 MG/ML VIAL IV PRN ×2 (03:52→22:28)
[2023-01-07] MEDS: METOPROLOL TARTRATE 25 MG TABLET GT SCH ×2 (05:00→16:48)
[2023-01-07] MEDS: LEVETIRACETAM SOL (5 ML) 100 MG/ML UDC GT SCH ×2 (05:24→16:46)
--- NOTE | 2023-01-07 05:42 | NUR ---
RN NOTES PATIENT BLOOD PRESSURE 93/56, HR 88BPM. METOPROLOL NOT GIVEN BP TOO LOW
[2023-01-07] MEDS: BLOOD SUGAR DIAGNOSTIC 1 EACH STRIP IN SCH ×5 (05:54→23:15)
[2023-01-07 06:16] LABS: BASOPHILS # (AUTO) 0.1 K/uL (0.0-0.2); BASOPHILS % (AUTO) 0.6 % (0.0-2.0); EOSINOPHILS % (AUTO) 3.8 % (0.0-6.0); HEMATOCRIT 39 % (39-51); HEMOGLOBIN 12.5 g/dL (13.5-17.5); LYMPHOCYTES % (AUTO) 21.1 % (20.0-44.0); MEAN CORPUSCULAR HGB CONC 32 g/dl (31.0-36.0); MEAN CORPUSCULAR VOLUME 99 fL (80-96); MONOCYTES # (AUTO) 0.8 K/uL (0.1-1.30); NEUTROPHILS # (AUTO) 6.2 K/uL (1.8-8.9); NEUTROPHILS % (AUTO) 65.5 % (43.0-81.0); PLATELET COUNT (AUTO) 293 K/uL (150-450); RED BLOOD CELL COUNT(AUTO) 3.93 MIL/uL (4.5-6.0); WHITE BLOOD COUNT (AUTO) 9.4 K/uL (4.3-11.0)
[2023-01-07 06:29] LABS: CALCIUM, SERUM 8.8 mg/dL (8.5-10.1); CREATININE 0.9 mg/dL (0.6-1.3); MAGNESIUM 2.2 mg/dL (1.8-2.4); PHOSPHORUS 3.4 mg/dL (2.5-4.9)
[2023-01-07 06:33] LABS: POTASSIUM 2.8 mmol/L (3.5-5.1)
--- NOTE | 2023-01-07 06:54 | NUR ---
MS RN CLOSING NOTES PATIENT IN BED AWAKE, A/O X0, NON-VERBAL, CONFUSED, ON NASAL CANULA 3LPM, PATIENT NOT IN DISTRESS NOTED, NO SOB NOTED, PATIENT WITH SOFT RESTRAINT ON BOTH ARM, SKIN INTEGRITY IS CHECKED SKIN INTACT NO REDNESS NOTED. IV ACCESS ON LEFT ARM G#22 SL, PATIENT ON NPO, PATIENT WITH PEG TUBE INFUSING WELL GLUCERNA 1.2 @ 30ML/HR TOLERATING WELL. ALL DUE MEDICATIONS ARE GIVEN. ALL NEEDS MET. SAFETY PRECAUTION IN PLACED; BED LOCKED AND IN LOWEST POSITION, CALL LIGHT WITH IN REACH, SIDE RAIL UP X4. WILL ENDORSE TO NEXT SHIFT FOR CONTINUITY OF CARE.
[2023-01-07] MEDS ORDERED: POTASSIUM CHLORIDE 20 MEQ POWDER PACKET GT ONE (07:30)
[2023-01-07 08:13] VITALS: BP 120/68
--- NOTE | 2023-01-07 08:23 | NUR ---
RN OPENING NOTE RECEIVED PATIENT IN BED, AWAKES, CONFUSED. ABLE TO RESPONDS PHYSICAL STIMULI. RESPIRATORY EVEN AND UNLABORED IN ROOM AIR. IN NO ACUTE DISTRESS OBSERVED. SKIN IS WARM TO TOUCH, KEEP CLEAN/DRY. G-TUBE RUNNING AT 50 ML/HR AND KEPT ELEVATED HOB FOR ASPIRATION PRECAUTION/ENSURE AIRWAY, ALSO LOWEST BED POSITIONED. BED ALARM IS ON AT ALL THE TIME FOR SAFETY. CALL LIGHT WITHIN REACH, WILL CONTINUE TO MONITOR.
[2023-01-07] MEDS: ZINC SULFATE 220 MG CAPSULE GT SCH (08:38)
[2023-01-07] MEDS: QUETIAPINE FUMARATE 25 MG TABLET GT SCH ×3 (08:38→16:41)
[2023-01-07] MEDS: LACTOBACILLUS RHAMNOSUS GG 1 EACH CAP.SPRINK GT SCH (08:38)
[2023-01-07] MEDS: PANTOPRAZOLE 40 MG/PACK PACK GT SCH (08:38)
[2023-01-07] MEDS: AMIODARONE HCL 200 MG TABLET GT SCH (08:38)
[2023-01-07] MEDS: POLYETHYLENE GLYCOL 3350 17 GM POWD.PACK GT SCH (08:39)
[2023-01-07] MEDS: VALPROIC ACID 250 MG/5 ML UDC GT SCH ×3 (08:39→21:14)
[2023-01-07] MEDS: ASCORBIC ACID 500 MG TABLET GT SCH (08:39)
[2023-01-07] MEDS: FAMOTIDINE (20 MG) 20 MG TABLET GT SCH ×2 (08:39→16:40)
[2023-01-07] MEDS: POTASSIUM CL. PREMIX PERIPHER. 50 ML IV SCH ×6 (08:40→14:01)
[2023-01-07] MEDS: APIXABAN 2.5 MG TABLET GT SCH ×2 (08:43→16:40)
[2023-01-07] MEDS: VANCOMYCIN 1 GM in IV D5W 250 ML IV SCH ×2 (10:07→21:14)
--- NOTE | 2023-01-07 12:00 | NUR ---
THE PATIENT'S MENTIONED THAT MISSING ABDOMINAL BINDER FOR G-TUBE, AND COULD NOT FOUND IT. PROVIDED NEW ABDOMINAL BINDER FROM [facility].
[2023-01-07 16:00] VITALS: BP 125/77
[2023-01-07] MEDS: GLUCERNA 1.2 1,000 ML BOTTLE NG PRN (16:56)
[2023-01-07] MEDS ORDERED: GLUCERNA 1.2 1,000 ML BOTTLE NG PRN (17:19)
--- NOTE | 2023-01-07 18:00 | NUR ---
RN CLOSING NOTE PATIENT RESTING IN BED. CONFUSED. IN NO ACUTE DISTRESS OBSERVED. RESPIRATORY EVEN AND UNLABORED ON OXYGEN AT 2Ls. IN NO ACUTE RESPIRATORY DISTRESS OBSERVED. SKIN IS WARM TO TOUCH KEEP CLEAN/DRY. KEPT ELEVATED HOB FOR ENSURE AIRWAY/ASPIRATION PRECAUTION, AND LOWEST BED POSITION. BED ALARM IS ON AT ALL THE TIME FOR SAFETY. CALL LIGHT WITHIN REACH, WILL ENDORSE BASKET PATCHER.
--- NOTE | 2023-01-07 19:30 | NUR ---
MS RN OPENING NOTE RECEIVED PATIENT IN BED AWAKE, AND RESTLESS. PATIENT IS APHASIC, ON O2 @5 LITERS VIA NC WITH O2 SATURATION OF 95%. NO SOB OR RESPIRATORY DISTRESS NOTED. NOTED RESTLESS, AND MOVING CONSTANTLY. IV ACCESS TO RIGHT WRIST WITH G#22 PATENT AND INTACT. MCKEE CATHETER INTACT DRAINING PINKISH COLOR URINE.ON G TUBE FEEDING OF GLUCERNA 1.2 AR 60 ML /HR. ALL SAFETY MEASURES PROVIDED.HEAD OF THE BED ELEVATED. BILATERAL WRIST RESTRAIN IN PLACE . SKIN CHECKS DONE FREQUENTLY FOR CIRCULATION. BED IN LOW POSITION, LOCKED. SIDE RAILS UP X 2, HOB ELEVATED, CALL LIGHT WITHIN REACH. WILL CONTINUE TO MONITOR CLOSELY.
[2023-01-07 20:00] VITALS: BP 116/90
[2023-01-07] MEDS ORDERED: QUETIAPINE FUMARATE 25 MG TABLET GT SCH (21:00)
[2023-01-07] MEDS: ATORVASTATIN 40 MG TABLET GT SCH (21:13)
[2023-01-07] MEDS: INSULIN GLARGINE, 100 UNIT/ML CARTRIDGE SQ SCH (22:00)
--- NOTE | 2023-01-07 22:00 | NUR ---
RN NOTES HELD INSULIN LANTUS, BLOOD SUGAR 143. PATIENT SO RESTLESS AND SLIDING DOWN THE BED. RISK FOR ASPIRATION. PRN TYLENOL GIVEN AT 2014. ROUTINE SEROQUEL GIVEN AT 2001. PATIENT STILL RESTLESS. TURNED OFF G-TUBE FOR ASPIRATION PRECAUTION. DOES NOT ADMINISTERED INSULIN.
--- NOTE | 2023-01-07 22:28 | NUR ---
RN NOTES PRN ATIVAN 0.5 ML GIVEN FOR ANXIETY AND RESTLESSNESS PER MD ORDER.
[2023-01-08] MEDS: IPRATROPIUM NEB FS 0.5 MG/2.5 ML AMPUL.NEB NEB SCH ×4 (02:26→19:02)
[2023-01-08] MEDS: ALBUTEROL FS 2.5 MG/0.5 ML VIAL.NEB NEB SCH ×4 (02:26→19:02)
[2023-01-08] MEDS: ACETYLCYSTEINE 10% SOLN 400 MG/4 ML VIAL HHN SCH ×4 (02:26→19:02)
[2023-01-08] MEDS: ACETAMINOPHEN 650 MG/20.3 ML UDC GT PRN (02:59)
--- NOTE | 2023-01-08 02:59 | NUR ---
RN NOTES PRN TYLENOL 650 MG GIVEN ORDERED FOR PAIN 3/10 OF GENERALIZED PAIN.
[2023-01-08] MEDS: LEVETIRACETAM SOL (5 ML) 100 MG/ML UDC GT SCH ×3 (04:07→17:21)
[2023-01-08] MEDS: METOPROLOL TARTRATE 25 MG TABLET GT SCH ×2 (04:27→17:00)
[2023-01-08] MEDS: LORAZEPAM INJ 2 MG/ML VIAL IV PRN ×2 (04:43→18:18)
--- NOTE | 2023-01-08 04:49 | NUR ---
RN NOTES PRN ATIVAN GIVEN AT 0443 FOR ANXIETY AND BEING RESTLESS. PATIENT KEEPS SLIDING DOWN THE BED . PATIENT IS ELEVATING BOTH FEET AT 80 DEGREES. HIGH RISK FOR ASPIRATION. I STOP THE FEEDING FOR ASPIRATION PRECAUTION.
[2023-01-08] MEDS: BLOOD SUGAR DIAGNOSTIC 1 EACH STRIP IN SCH ×4 (05:15→23:55)
[2023-01-08 07:28] LABS: CREATININE 0.9 mg/dL (0.6-1.3); MAGNESIUM 2.5 mg/dL (1.8-2.4); PHOSPHORUS 3.1 mg/dL (2.5-4.9); POTASSIUM 3.6 mmol/L (3.5-5.1)
--- NOTE | 2023-01-08 07:30 | NUR ---
MS RN CLOSING NOTE PATIENT IN BED AWAKE, AND RESTLESS. PATIENT IS APHASIC, ON O2 @3 LITERS VIA NC WITH O2 SATURATION OF 96%. NO SOB OR RESPIRATORY DISTRESS NOTED. NOTED RESTLESS, AND MOVING CONSTANTLY. IV ACCESS TO RIGHT WRIST WITH G#22 PATENT AND INTACT. MCKEE CATHETER INTACT DRAINING PINKISH COLOR URINE. URINE OUTPUT NOTED 400 ML.ON G TUBE FEEDING OF GLUCERNA 1.2 AR 60 ML /HR. CURRENTLY OFF FOR ASPIRATION PRECAUTION. SINCE PATIENT SLIDES DOWN THE BED . ALL DUE MEDS GIVEN ORDERED.ALL SAFETY MEASURES PROVIDED.HEAD OF THE BED ELEVATED. BILATERAL WRIST RESTRAIN IN PLACE . SKIN CHECKS DONE FREQUENTLY FOR CIRCULATION. BED IN LOW POSITION, LOCKED. SIDE RAILS UP X 2, HOB ELEVATED, CALL LIGHT WITHIN REACH. WILL ENDORSE FOR LILLIAN.
[2023-01-08 07:48] LABS: BASOPHILS # (AUTO) 0.1 K/uL (0.0-0.2); BASOPHILS % (AUTO) 0.6 % (0.0-2.0); HEMATOCRIT 42 % (39-51); HEMOGLOBIN 13.2 g/dL (13.5-17.5); LYMPHOCYTES # (AUTO) 2.3 K/uL (0.8-4.8); LYMPHOCYTES % (AUTO) 19.8 % (20.0-44.0); MEAN CORPUSCULAR HGB CONC 32 g/dl (31.0-36.0); MEAN CORPUSCULAR VOLUME 100 fL (80-96); MONOCYTES # (AUTO) 1.2 K/uL (0.1-1.30); MONOCYTES % (AUTO) 10.1 % (2.0-12.0); NEUTROPHILS # (AUTO) 7.7 K/uL (1.8-8.9); NEUTROPHILS % (AUTO) 65.5 % (43.0-81.0); PLATELET COUNT (AUTO) 280 K/uL (150-450); RED BLOOD CELL COUNT(AUTO) 4.16 MIL/uL (4.5-6.0); WHITE BLOOD COUNT (AUTO) 11.7 K/uL (4.3-11.0)
--- NOTE | 2023-01-08 07:51 | NUR ---
MS RN OPENING NOTE Patient in bed, awake and very restless. A/O x 0, confused. On O2 at 3LPM, breathing evenly and unlabored. No SOB or s/s or distress noted. IV access on Right wrist #22 SL, intact and patent. Morrison catheter in place draining to a dark orange urine. G-tube in place running Glucerna 1.2 at 60 ml/hr. Safety precautions in place: bed in low, locked position; siderails up x 2; call light within reach. Will continue to monitor.
[2023-01-08 08:00] VITALS: BP 134/64
[2023-01-08] MEDS: APIXABAN 2.5 MG TABLET GT SCH ×2 (08:51→17:25)
[2023-01-08] MEDS: VALPROIC ACID 250 MG/5 ML UDC GT SCH ×3 (08:51→22:26)
[2023-01-08] MEDS: AMIODARONE HCL 200 MG TABLET GT SCH (08:53)
[2023-01-08] MEDS: LACTOBACILLUS RHAMNOSUS GG 1 EACH CAP.SPRINK GT SCH (08:54)
[2023-01-08] MEDS: FAMOTIDINE (20 MG) 20 MG TABLET GT SCH ×2 (08:54→17:21)
[2023-01-08] MEDS: ASCORBIC ACID 500 MG TABLET GT SCH (08:55)
[2023-01-08] MEDS: POLYETHYLENE GLYCOL 3350 17 GM POWD.PACK GT SCH (08:55)
[2023-01-08] MEDS: ZINC SULFATE 220 MG CAPSULE GT SCH (08:55)
[2023-01-08] MEDS: PANTOPRAZOLE 40 MG/PACK PACK GT SCH (08:55)
[2023-01-08] MEDS ORDERED: QUETIAPINE FUMARATE 25 MG TABLET GT SCH (09:00)
[2023-01-08] MEDS: VANCOMYCIN 1 GM in IV D5W 250 ML IV SCH ×2 (10:15→22:31)
[2023-01-08] MEDS ORDERED: GLUCERNA 1.2 1,000 ML BOTTLE NG PRN ×2 (12:59)
[2023-01-08] MEDS: QUETIAPINE FUMARATE 25 MG TABLET GT SCH ×3 (13:35→22:25)
[2023-01-08 16:00] VITALS: BP 108/68
--- NOTE | 2023-01-08 19:20 | NUR ---
MS RN CLOSING NOTE Patient in bed, resting. A/O x 0, confused. On O2 at 3LPM, breathing evenly and unlabored. No SOB or s/s or distress noted. IV access on Right wrist #22 SL, intact and patent. Morrison catheter in place draining to a blood tinged urine with an output of 1200 cc. G-tube in place, on Glucerna 1.2 at 75ml/hr, held feeding for now, residual of 200 noted. Endorsed to shift lab technician nurse to resume feeding once residuals subside. Bilateral soft wrist restraints noted. Patient kept clean and dry. Due meds given. Ativan 0.5 mg given for restlessness and agitation. Safety precautions in place: bed in low, locked position; siderails up x 2; call light within reach. Will endorse to shift lab technician nurse for LILLIAN.
--- NOTE | 2023-01-08 19:56 | NUR ---
RN Opening Notes Received pt in bed, asleep, awakens to verbal stimuli. AOx1. confused. ON NC 3LPM and tolerating well. No SOB noted. No s/sx of respiratory distress noted. IV Access in R wrist #22G. IV is intact, patent, and flushing well. Safety precautions in place: bed in lowest, locked position, siderails upx2, and brakes on. Table and call light within reach. All needs met at this time.
[2023-01-08 20:00] VITALS: BP 150/79
[2023-01-08] MEDS: INSULIN GLARGINE, 100 UNIT/ML CARTRIDGE SQ SCH (22:00)
[2023-01-08] MEDS: ATORVASTATIN 40 MG TABLET GT SCH (22:25)
[2023-01-09] MEDS: ALBUTEROL FS 2.5 MG/0.5 ML VIAL.NEB NEB SCH ×4 (01:36→20:17)
[2023-01-09] MEDS: ACETYLCYSTEINE 10% SOLN 400 MG/4 ML VIAL HHN SCH ×4 (01:36→20:17)
[2023-01-09] MEDS: IPRATROPIUM NEB FS 0.5 MG/2.5 ML AMPUL.NEB NEB SCH ×4 (01:36→20:17)
[2023-01-09] MEDS: METOPROLOL TARTRATE 25 MG TABLET GT SCH ×2 (05:00→16:11)
[2023-01-09] MEDS: LEVETIRACETAM SOL (5 ML) 100 MG/ML UDC GT SCH ×2 (05:46→16:09)
[2023-01-09] MEDS: BLOOD SUGAR DIAGNOSTIC 1 EACH STRIP IN SCH ×4 (06:01→23:47)
[2023-01-09 07:06] LABS: BASOPHILS % (AUTO) 0.5 % (0.0-2.0); EOSINOPHILS % (AUTO) 3.9 % (0.0-6.0); HEMATOCRIT 39 % (39-51); HEMOGLOBIN 12.6 g/dL (13.5-17.5); LYMPHOCYTES # (AUTO) 1.3 K/uL (0.8-4.8); MEAN CORPUSCULAR HGB CONC 32 g/dl (31.0-36.0); MEAN CORPUSCULAR VOLUME 99 fL (80-96); MONOCYTES # (AUTO) 0.8 K/uL (0.1-1.30); MONOCYTES % (AUTO) 8.3 % (2.0-12.0); NEUTROPHILS # (AUTO) 7.2 K/uL (1.8-8.9); NEUTROPHILS % (AUTO) 74.3 % (43.0-81.0); PLATELET COUNT (AUTO) 286 K/uL (150-450); RED BLOOD CELL COUNT(AUTO) 3.97 MIL/uL (4.5-6.0); WHITE BLOOD COUNT (AUTO) 9.7 K/uL (4.3-11.0)
[2023-01-09 07:12] LABS: CALCIUM, SERUM 9.1 mg/dL (8.5-10.1); CREATININE 0.8 mg/dL (0.6-1.3); MAGNESIUM 2.3 mg/dL (1.8-2.4); PHOSPHORUS 2.9 mg/dL (2.5-4.9); POTASSIUM 3.1 mmol/L (3.5-5.1)
--- NOTE | 2023-01-09 07:43 | NUR ---
RN Closing Notes Pt in bed, asleep, awakens to verbal stimuli. AOx1. confused. ON NC 3LPM and tolerating well. No SOB noted. No s/sx of respiratory distress noted. IV Access in R wrist #22G. IV is intact, patent, and flushing well. All orders carried out. All needs met. Pt kept clean and dry. Safety precautions in place: bed in lowest, locked position, siderails upx2, and brakes on. Table and call light within reach. Will endorse to oncoming shift for LILLIAN.
--- NOTE | 2023-01-09 07:57 | NUR ---
RN OPENING NOTES: RECEIVED PT ASLEEP, AWAKENS TO VERBAL STIMULI, CONFUSED. ON O2, 3L VIA NC, NO S/S OF SOB. IV ACCESS AT R WRIST, #22, SL. GTF GLUCERNA 1.2 @ 60 ML/HR, TOLERATING WELL. MCKEE CATH NOTED, DRAINING DARK YELLOW URINE. BILATERAL SOFT WRIST RESTRAINTS NOTED, CHECKED SKIN FOR CIRCULATION, NO ISSUES NOTED. HOB ELEVATED, ALL SAFETY PRECAUTIONS IN PLACE, WILL CONT WITH PLAN OF CARE.
[2023-01-09] MEDS: PANTOPRAZOLE 40 MG/PACK PACK GT SCH ×2 (08:55→09:01)
[2023-01-09] MEDS: FAMOTIDINE (20 MG) 20 MG TABLET GT SCH ×2 (08:55→16:09)
[2023-01-09] MEDS: VALPROIC ACID 250 MG/5 ML UDC GT SCH ×3 (08:55→21:39)
[2023-01-09] MEDS: AMIODARONE HCL 200 MG TABLET GT SCH ×2 (09:00→09:02)
[2023-01-09] MEDS: POTASSIUM CHLORIDE 20 MEQ POWDER PACKET NG SCH ×2 (09:01→10:18)
[2023-01-09] MEDS: QUETIAPINE FUMARATE 25 MG TABLET GT SCH ×4 (09:02→21:39)
[2023-01-09] MEDS: LACTOBACILLUS RHAMNOSUS GG 1 EACH CAP.SPRINK GT SCH (09:02)
[2023-01-09] MEDS: ZINC SULFATE 220 MG CAPSULE GT SCH (09:02)
[2023-01-09] MEDS: ASCORBIC ACID 500 MG TABLET GT SCH (09:02)
[2023-01-09] MEDS: APIXABAN 2.5 MG TABLET GT SCH ×2 (09:04→16:16)
[2023-01-09] MEDS: POLYETHYLENE GLYCOL 3350 17 GM POWD.PACK GT SCH (09:10)
[2023-01-09] MEDS: VANCOMYCIN 1 GM in IV D5W 250 ML IV SCH ×2 (10:18→22:13)
[2023-01-09] MEDS ORDERED: POTASSIUM CHLORIDE 20 MEQ POWDER PACKET NG SCH (11:30)
[2023-01-09 17:00] VITALS: BP 112/83
--- NOTE | 2023-01-09 18:42 | NUR ---
MS RN CLOSING NOTES: PT ASLEEP, AWAKENS TO VERBAL STIMULI, CONFUSED. ON O2, 3L VIA NC, NO S/S OF SOB. IV ACCESS AT R WRIST, #22, SL. GTF GLUCERNA 1.2 @ 60 ML/HR, TOLERATING WELL. MCKEE CATH DRAINED DARK MCKINLEY COLORED URINE, DRAINED= 800CC DURING SHIFT. BILATERAL SOFT WRIST RESTRAINTS CHECKED Q2, NO SKIN ISSUES NOTED. KEPT PT CLEAN, DRY AND COMFORTABLE, ALL MEDS GIVEN. HOB ELEVATED AT ALL TIMES. ALL SAFETY PRECAUTIONS IN PLACE, WILL ENDORSE TO PM SHIFT. Addendum: 01/09/23 at 1850 by RICH DIALLO RN IV ACCESS AT L FA #20 SL, PATENT AND FLUSHING WELL.
--- NOTE | 2023-01-09 19:50 | NUR ---
MS RN OPENING NOTES RECEIVED PATIENT ASLEEP IN BED. EASILY AWAKENS TO VERBAL STIMULI. A/O X 1, CONFUSED. ON O2, 2L VIA NC. NO S/S DISTRESS AT THIS TIME. IV ACCESS AT LEFT FA #20G, SL, INTACT AND PATENT. GTF GLUCERNA 1.2 @ 60 ML/HR, TOLERATING WELL. MCKEE CATH DRAINING BLOOD TINGED URINE. PATIENT WITH BILATERAL SOFT WRIST RESTRAINTS.HOB ELEVATED. SAFETY PRECAUTIONS GIVEN BED IN LOCKED AND LOWEST POSITION. SIDE RAILS UP X 2. CALL LIGHT WITHIN EASY REACH. BED ALARM ON. WILL CONTINUE WITH THE PLAN OF CARE.
[2023-01-09 20:00] VITALS: BP 155/70
[2023-01-09] MEDS: TRAMADOL HCL 50 MG TABLET PO PRN (20:10)
--- NOTE | 2023-01-09 20:15 | NUR ---
RN NOTES PRN TRAMADOL 50MG GIVEN ORDERED FOR PAIN. PATIENT WAS RESTLESS AND MOANING. WILL CONTINUE TO MONITOR PATIENT.
[2023-01-09] MEDS: ATORVASTATIN 40 MG TABLET GT SCH (21:40)
[2023-01-09] MEDS: INSULIN GLARGINE, 100 UNIT/ML CARTRIDGE SQ SCH (23:47)
--- NOTE | 2023-01-10 00:26 | NUR ---
RN NOTES MCKEE CATHETER'S DRAINING RED URINE. FLUSHING THE MCKEE CATHETER WITH NS. CHARGE NURSE AND DOCTOR INFORMED. WILL MONITOR THE PATIENT.
--- NOTE | 2023-01-10 01:25 | NUR ---
RN NOTES Q4 HR 80ML NS MCKEE FLUSHES ( OR UNTIL CLEAR OF CLOTS) STARTED PER MIKE. IF STILL HAVING CLOTS, INFORM MD THEN START CONTINUOUS 3-WAY IRRIGATION. WILL CONTINUE TO MONITOR PATIENT.
[2023-01-10] MEDS: ACETYLCYSTEINE 10% SOLN 400 MG/4 ML VIAL HHN SCH ×2 (02:16→08:30)
[2023-01-10] MEDS: ALBUTEROL FS 2.5 MG/0.5 ML VIAL.NEB NEB SCH ×2 (02:16→08:31)
[2023-01-10] MEDS: IPRATROPIUM NEB FS 0.5 MG/2.5 ML AMPUL.NEB NEB SCH ×2 (02:16→08:30)
[2023-01-10] MEDS: LEVETIRACETAM SOL (5 ML) 100 MG/ML UDC GT SCH (04:25)
[2023-01-10] MEDS: METOPROLOL TARTRATE 25 MG TABLET GT SCH (04:25)
[2023-01-10] MEDS: TRAMADOL HCL 50 MG TABLET PO PRN (04:25)
--- NOTE | 2023-01-10 04:30 | NUR ---
RN NOTES PRN TRAMADOL 50MG GIVEN ORDERED FOR PAIN. PATIENT WAS RESTLESS AND MOANING. WILL CONTINUE TO MONITOR PATIENT.
--- NOTE | 2023-01-10 05:33 | NUR ---
RN NOTES FLUSHED MCKEE CATHETER WITH 80ML NS, DRAINED MCKINLEY COLOR URINE WITH FEW BLOOD AT THE BOTTOM OF MCKEE. INFORMED MIKE. CONTINUE FLUSHING Q4 HRS ADVISED. MONITOR AND REPORT FOR BLOOD CLOTS.
[2023-01-10] MEDS: BLOOD SUGAR DIAGNOSTIC 1 EACH STRIP IN SCH ×2 (05:38→12:00)
--- NOTE | 2023-01-10 06:52 | NUR ---
MS RN CLOSING NOTES PATIENT IN BED SLIGHTLY AWAKE. A/O X 1, CONFUSED. ON O2, 3L VIA NC. NO S/S DISTRESS AT THIS TIME. IV ACCESS AT LEFT FA #20G, SL, INTACT AND PATENT. GTF GLUCERNA 1.2 @ 60 ML/HR, TOLERATING WELL. MCKEE CATH DRAINING FROM MCKINLEY COLORED URINE TO RED. PATIENT WITH BILATERAL SOFT WRIST RESTRAINTS, RENEWED. HOB ELEVATED. GIVEN ALL DUE MEDICATIONS. SAFETY PRECAUTIONS GIVEN BED IN LOCKED AND LOWEST POSITION. SIDE RAILS UP X 2. CALL LIGHT WITHIN EASY REACH. BED ALARM ON. WILL ENDORSE TO THE NEXT SHIFT.
[2023-01-10 08:00] VITALS: BP 134/94
[2023-01-10] MEDS: VALPROIC ACID 250 MG/5 ML UDC GT SCH (08:42)
[2023-01-10] MEDS: FAMOTIDINE (20 MG) 20 MG TABLET GT SCH (08:43)
[2023-01-10] MEDS: POLYETHYLENE GLYCOL 3350 17 GM POWD.PACK GT SCH (08:43)
[2023-01-10] MEDS: ASCORBIC ACID 500 MG TABLET GT SCH (08:43)
[2023-01-10] MEDS: LACTOBACILLUS RHAMNOSUS GG 1 EACH CAP.SPRINK GT SCH (08:43)
[2023-01-10] MEDS: QUETIAPINE FUMARATE 25 MG TABLET GT SCH ×2 (08:43→13:40)
[2023-01-10] MEDS: APIXABAN 2.5 MG TABLET GT SCH (08:46)
[2023-01-10] MEDS: PANTOPRAZOLE 40 MG/PACK PACK GT SCH (09:38)
[2023-01-10] MEDS: ZINC SULFATE 220 MG CAPSULE GT SCH (09:38)
[2023-01-10 10:29] LABS: BASOPHILS % (AUTO) 0.3 % (0.0-2.0); EOSINOPHILS % (AUTO) 3.1 % (0.0-6.0); HEMATOCRIT 38 % (39-51); HEMOGLOBIN 12.2 g/dL (13.5-17.5); LYMPHOCYTES # (AUTO) 1.3 K/uL (0.8-4.8); LYMPHOCYTES % (AUTO) 13.4 % (20.0-44.0); MEAN CORPUSCULAR HGB CONC 32 g/dl (31.0-36.0); MEAN CORPUSCULAR VOLUME 99 fL (80-96); MONOCYTES % (AUTO) 10.6 % (2.0-12.0); NEUTROPHILS # (AUTO) 7.2 K/uL (1.8-8.9); NEUTROPHILS % (AUTO) 72.6 % (43.0-81.0); PLATELET COUNT (AUTO) 232 K/uL (150-450); WHITE BLOOD COUNT (AUTO) 9.9 K/uL (4.3-11.0)
[2023-01-10 10:43] LABS: SODIUM SERUM 142 mmol/L (136-145)
[2023-01-10 10:44] LABS: CALCIUM, SERUM 8.8 mg/dL (8.5-10.1); CARBON DIOXIDE 37 mmol/L (21-32); CHLORIDE 104 mmol/L (98-107); CREATININE 0.7 mg/dL (0.6-1.3); GLUCOSE 147 mg/dL (74-106); POTASSIUM 3.7 mmol/L (3.5-5.1); UREA NITROGEN, BLOOD 14 mg/dL (7-18)
[2023-01-10] MEDS: VANCOMYCIN 1 GM in IV D5W 250 ML IV SCH (10:45)
--- NOTE | 2023-01-10 13:40 | NUR ---
PT TRANSFERRED FROM BED TO [facility] WITH TRANSPORTATION TO [facility] SNIFF, IV SITE D/C NO INFLAMMATION NO IRRITATION NOTED, GAUZE AND TAPE APPLIED AND NO EXCESSIVE BLEEDING NOTED, F/C D/C PENIS INTACT NO IRRITATION NOTED, URINE WAS MCKINLEY WITH TENT OF RED NOTED - MD AWARE, NO ADVERSE REACTION NOTED TO ABT TREATMENT, G - TUBE IS INTACT IN PLACE AND PATENT. SAFE TRANSFER FROM BED TO [facility] AND TO TRANSPORT VEHICLE. PT IN ROUTE TO SNIFF AT [facility] / PRESENT WILL MEET EMT'S THERE
--- NOTE | 2023-01-10 13:45 | NUR ---
AT TIME OF TRANSFER PT STABLE CONDITION, LETHARGIC AND VERY SLEEPY ABLE TO AROUSE, VS ; B/P = 124/74 , P = 101, TEMP 98.2 , RR = 16 , UNABLE TO MAKE NEEDS KNOWN NOT COMMUNICATING HOWEVER PRESENT AND HELPFUL TO GET ALL NEEDS MET, THE RESTRAINTS D/C NO REDNESS AND NO IRRITATION NOTED TO SITES - ALL AREAS INTACT AND NO C/O PAIN AND NO S/S OF ANY PAIN NOTED AT THIS TIME.
== END 2023-01-10 13:30 | DRG 871 ==
LOC: ER 07:54 → TELE 11:04 → MED 01-03 12:39
PROVIDERS: ADMIT Nurse Practitioner Acute Care; ATTEND Student in an Organized Health Care Education/Training Program
PROC: 0D20XUZ Change Feeding Device in Upper Intestinal Tract, External Approach (ICD-10-PCS; principal; 2023-01-06)
DX: A41.89 Other specified sepsis (principal); G93.41 Metabolic encephalopathy; J69.0 Pneumonitis due to inhalation of food and vomit; I50.33 Acute on chronic diastolic (congestive) heart failure; J96.01 Acute respiratory failure with hypoxia; J96.02 Acute respiratory failure with hypercapnia; N39.0 Urinary tract infection, site not specified; E44.0 Moderate protein-calorie malnutrition; K94.23 Gastrostomy malfunction; J44.1 Chronic obstructive pulmonary disease with (acute) exacerbation; J44.0 Chronic obstructive pulmonary disease with (acute) lower respiratory infection; D68.59 Other primary thrombophilia; I11.0 Hypertensive heart disease with heart failure; Z20.822 Contact with and (suspected) exposure to COVID-19; K29.70 Gastritis, unspecified, without bleeding; F03.90 Unspecified dementia, unspecified severity, without behavioral disturbance, psychotic disturbance, mood disturbance, and anxiety; K21.9 Gastro-esophageal reflux disease without esophagitis; E11.9 Type 2 diabetes mellitus without complications; E78.5 Hyperlipidemia, unspecified; R62.7 Adult failure to thrive; Z79.4 Long term (current) use of insulin; Z79.01 Long term (current) use of anticoagulants; Z79.51 Long term (current) use of inhaled steroids; Z79.899 Other long term (current) drug therapy; R13.10 Dysphagia, unspecified; Z86.73 Personal history of transient ischemic attack (TIA), and cerebral infarction without residual deficits; D64.9 Anemia, unspecified; M19.90 Unspecified osteoarthritis, unspecified site; Z78.1 Physical restraint status; R41.0 Disorientation, unspecified; Y83.3 Surgical operation with formation of external stoma as the cause of abnormal reaction of the patient, or of later complication, without mention of misadventure at the time of the procedure; I48.0 Paroxysmal atrial fibrillation; Y92.129 Unspecified place in nursing home as the place of occurrence of the external cause; E87.6 Hypokalemia; E88.09 Other disorders of plasma-protein metabolism, not elsewhere classified; B96.89 Other specified bacterial agents as the cause of diseases classified elsewhere; B95.2 Enterococcus as the cause of diseases classified elsewhere; Z74.09 Other reduced mobility; R31.9 Hematuria, unspecified
CPT/HCPCS: 31720; 36415; 36600; 43760; 71045-TC; 71250-TC; 74018; 80048-TC; 80053-TC; 80076-TC; 80164-TC; 80202-TC; 81001; 82803-TC; 82962-TC; 83605-TC; 83735-TC; 84100-TC; 84484-TC; 85025-TC; 85730-TC; 87040-TC; 87081-TC; 87086-TC; 93307-TC; 94660; 94799-TC; 97110-TC; 97112-TC; 97530-TC; A4217; A4223; A4349; C9803; G0378; J0360; J0692; J0696; J1815; J1940; J1953; J2060; J2704; J3370; J3480; J3490; J7030; J7040; J7042; J7050; J7060; Q9963

== ENCOUNTER 2023-01-13 03:18 | Inpatient (IN) | payer MEDICARE, OTHER ==
[~2023-01-13] VITALS: Ht 170.2 cm; Wt 88.0 kg
[~2023-01-13 03:18] MED LIST: ACET-868 GT; ACET100V5 NEB; AMIO200T5 GT; APIX2.5T GT; ASCO-352 GT; ATOR40TA GT; BISA10SU11 RC; FAMO20TA8 GT; INSU100V3 SQ; INSU100V7 SQ; IPRA3AMP23 IH; LACT1CAP71 GT; LEVE1000 GT; METO25TA20 GT; MODAFINIL GT; NUT.237L30 GT; ONDA4TAB5 GT; POLY17PO4 GT; QUET25TA GT; SENN-261 GT; VALP250S4 GT; ZINC50TA65 GT
--- NOTE | 2023-01-13 03:39 | NUR ---
ARIELLA FROM [facility] FOR SOB/DECREASED O2SAT 80S RA. ARRIVED ON NRB MASK AT 15LPM SATTING 100%. PT AWAKE AT BASELINE MENTATION X0-1 PER EMS. PT ALSO PULLED OUT 16FR GTUBE NURSE ORTHOPEDIC. CHANGED INTO GOWN AND PLACED ON SECTION GANG AND PULSE OX.
--- NOTE | 2023-01-13 03:40 | NUR ---
CAME WITH MIDLINE ON LEFT UPPER ARM. BLOOD DRAWN AND SENT TO LAB
--- NOTE | 2023-01-13 03:40 | NUR ---
COVID SWAB DONE AND SENT TO LAB
[2023-01-13 03:44] LABS: BASOPHILS % (AUTO) 0.4 % (0.0-2.0); EOSINOPHILS % (AUTO) 0.1 % (0.0-6.0); HEMATOCRIT 37 % (39-51); HEMOGLOBIN 12.1 g/dL (13.5-17.5); LYMPHOCYTES % (AUTO) 10.5 % (20.0-44.0); MEAN CORPUSCULAR HGB CONC 33 g/dl (31.0-36.0); MEAN CORPUSCULAR VOLUME 98 fL (80-96); MONOCYTES # (AUTO) 0.6 K/uL (0.1-1.30); MONOCYTES % (AUTO) 5.9 % (2.0-12.0); NEUTROPHILS % (AUTO) 83.1 % (43.0-81.0); PLATELET COUNT (AUTO) 322 K/uL (150-450); RED BLOOD CELL COUNT(AUTO) 3.75 MIL/uL (4.5-6.0); WHITE BLOOD COUNT (AUTO) 9.6 K/uL (4.3-11.0)
[2023-01-13] MEDS ORDERED: ACETAMINOPHEN 650 MG/SUPP.RECT RC ONE ×2 (03:55→04:00)
[2023-01-13 03:56] LABS: CALCIUM, SERUM 9.3 mg/dL (8.5-10.1); CARBON DIOXIDE 39 mmol/L (21-32); CHLORIDE 99 mmol/L (98-107); GLUCOSE 144 mg/dL (74-106); POTASSIUM 3.3 mmol/L (3.5-5.1); SODIUM SERUM 140 mmol/L (136-145); UREA NITROGEN, BLOOD 27 mg/dL (7-18)
--- NOTE | 2023-01-13 03:56 | NUR ---
IFC F16 INSERTED. URINE SPECIMEN SENT TO LAB
[2023-01-13 04:10] LABS: ALANINE AMINOTRANSFERASE 19 U/L (12-78); ALBUMIN 3.1 g/dL (3.4-5.0); ALKALINE PHOSPHATASE 67 U/L (46-116); ASPARTATE AMINOTRANSFERASE 27 U/L (15-37); BILIRUBIN,DIRECT 0.3 mg/dL (0.0-0.2); BILIRUBIN,TOTAL 0.5 mg/dL (0.2-1.0); TOTAL PROTEIN, SERUM 7.2 g/dL (6.4-8.2)
--- NOTE | 2023-01-13 04:22 | NUR ---
Amelia wolff in [facility] - 01/13/23 at 0527 by MICHAEL REFRIGERATION TECH AT BEDSIDE
--- NOTE | 2023-01-13 04:24 | NUR ---
DR NASSAR AT BEDSIDE
--- NOTE | 2023-01-13 04:38 | NUR ---
PREPARATION SUPERVISOR AT BEDSIDE
[2023-01-13 05:19] LABS: BILIRUBIN,URINE NEGATIVE (NEGATIVE); COLOR,URINE DARK YELLOW (YELLOW); LEUKOCYTE ESTERASE ,URINE TRACE (NEGATIVE); NITRITE, URINE NEGATIVE (NEGATIVE); PH,URINE 6.5 (5.0-8.0); PROTEIN,URINE NEGATIVE (NEGATIVE); UGLUCOSE NEGATIVE (NEGATIVE)
[2023-01-13 05:22] LABS: BACTERIA,URINE Rare /HPF (None Seen); SQUAMOUS EPITHELIAL CELL,UR Moderate /HPF (None Seen); WBC,URINE 0-2 /HPF (0-3)
[2023-01-13] MEDS ORDERED: CEFEPIME 1 GM VIAL ONE (05:43)
[2023-01-13] MEDS ORDERED: ALBUTEROL FS 2.5 MG/3 ML VIAL.NEB NEB PRN (06:00)
[2023-01-13] MEDS ORDERED: IPRATROPIUM NEB FS 0.5 MG/2.5 ML AMPUL.NEB NEB PRN (06:00)
[2023-01-13] MEDS ORDERED: DEXTROSE 50%-WATER 50 ML DISP.SYRIN IV PRN (06:00)
[2023-01-13] MEDS ORDERED: CEFEPIME 1 GM in IV D5W 50 ML IV ONE (06:00)
[2023-01-13] MEDS ORDERED: FUROSEMIDE 40 MG/4 ML VIAL IV ONE ×2 (06:00→11:00)
--- NOTE | 2023-01-13 08:00 | NUR ---
GOT BED 113-2 ADMITTING INFORMED.
--- NOTE | 2023-01-13 08:11 | NUR ---
REPORT GIVEN TO RONY JOHNSON FOR LILLIAN
--- NOTE | 2023-01-13 08:35 | NUR ---
OPEN TYPE DISK QUALITY CONTROL SUPERVISOR NOTE: RECEIVED PATIENT FROM ER. EYES OPEN. ON 02 2 LPM NC. SATING 95 %. SOCIAL WORKER CLINICAL SINUS TACHY 118. RIGHT UPPER ARM MIDLINE PATENT. LEFT WRIST IV. GT 16 LATVIAN X 6ML PATENT. CLAMPED. MCKEE CATHETER IN PLACE WITH YELLOW URINE. RIGHT MEDIAL OPEN WOUND. EPISODES OF ATTEMPTING TO PULL GT OUT. CONFUSED AND DISORIENTED. HOB ELEVATED SEMI-FOWLERS POSITION. BILATERAL HALF SIDE RAILS UPX2. BED IN LOW POSITION, LOCKED, EXIT ALARM ON. KEPT CLEAN AND COMFORTABLE. CALL LIGHT IN REACH.
--- NOTE | 2023-01-13 08:36 | NUR ---
mvoed to inpatient room safely per acls protocol
[2023-01-13 08:40] VITALS: BP 165/101
[2023-01-13] MEDS ORDERED: NUT.250L18 GT (09:37)
[2023-01-13] MEDS ORDERED: MAGN400O6 PO (09:37)
[2023-01-13] MEDS: BLOOD SUGAR DIAGNOSTIC 1 EACH STRIP IN SCH ×4 (09:47→21:59)
[2023-01-13] MEDS ORDERED: POTASSIUM CHLORIDE 20 MEQ POWDER PACKET GT SCH (10:00)
[2023-01-13] MEDS ORDERED: FUROSEMIDE 20 MG/2 ML VIAL IV SCH (10:00)
[2023-01-13] MEDS: LEVETIRACETAM SOL (5 ML) 100 MG/ML UDC GT SCH ×2 (10:41→17:24)
[2023-01-13] MEDS: POTASSIUM CL. PREMIX PERIPHER. 50 ML IV SCH ×4 (10:43→19:46)
[2023-01-13] MEDS: QUETIAPINE FUMARATE 25 MG TABLET GT SCH ×3 (10:44→17:24)
[2023-01-13] MEDS: FAMOTIDINE (20 MG) 20 MG TABLET GT SCH ×2 (10:45→17:24)
[2023-01-13] MEDS: METOPROLOL TARTRATE 25 MG TABLET GT SCH ×2 (10:47→17:25)
[2023-01-13] MEDS: AMIODARONE HCL 200 MG TABLET GT SCH (10:47)
[2023-01-13] MEDS: VALPROIC ACID 250 MG/5 ML UDC GT SCH ×3 (11:15→22:00)
[2023-01-13] MEDS: APIXABAN 2.5 MG TABLET GT SCH ×2 (11:17→17:28)
[2023-01-13] MEDS: INSULIN REGULAR, HUMAN 100 UNIT/ML 3 ML VIAL SQ PRN ×2 (11:44→22:00)
[2023-01-13 12:00] VITALS: BP 145/88
[2023-01-13] MEDS ORDERED: Medication Not On Formulary EA (Ipratropium/Albuterol Sulfate (Duoneb 2.5-0.5 Mg/3 Ml So IH SCH (12:00)
[2023-01-13] MEDS ORDERED: ALBUTEROL FS 2.5 MG/3 ML VIAL.NEB NEB SCH (13:30)
[2023-01-13] MEDS ORDERED: IPRATROPIUM NEB FS 0.5 MG/2.5 ML AMPUL.NEB NEB SCH (13:30)
[2023-01-13 16:00] VITALS: BP 136/91
--- NOTE | 2023-01-13 16:00 | NUR ---
CALLED DIETARY AND INFORMED PATIENT HAS A DIET CONSULT. PATIENT IS NPO AND NO GT FORMULA YET.
--- NOTE | 2023-01-13 19:00 | NUR ---
RN CLOSING NOTE: RESPONSIVE TO NAME. LEFT UPPER ARM MIDLINE PATENT. NO S/S OF COMPLICATIONS. RIGHT WRIST IV SALINE LOCKED. NO S/S OF COMPLICATIONS. GT IN PLACE PATENT. CLAMPED. NPO. ASPIRATION PRECAUTIONS MAINTAINED. NO S/S OF HYPO OR HYPERGLYCEMIA. MCKEE CATHETER IN PLACE WITH YELLOW URINE WITH 2500 ML OUTPUT. LEFT SOFT WRIST RESTRAINT ON. SKIN IS WITHIN NORMAL. CIRCULATION IS ADEQUATE. KEPT CLEAN AND COMFORTABLE. VISITED BY SON IN LAW L[place], AND GRANDSON IN AM, AND DAUGHTER DARY WITH SPOUSE. HOB ELEVATED SEMI-FOWLERS POSITION. BILATERAL HALF SIDE RAILS UP X2. CALL LIGHT IN REACH. BED IN LOW POSITION, LOCKED. EXIT ALARM ON. EPISODES OF AGITATION THROUGHOUT DAY, ALL MEDICATIONS GIVEN ORDERED AND EFFECTIVE.
--- NOTE | 2023-01-13 19:46 | NUR ---
0600 AM DOSE FOR LASIX IV AND POTASSIUM IV NOT ADMINISTERED, PHARMACY RETIMED.
[2023-01-13 20:00] VITALS: BP 143/93
[2023-01-13] MEDS ORDERED: IV NS 0.9% 250 ML IV PRN (22:30)
[2023-01-13] MEDS ORDERED: OLANZAPINE 10 MG VIAL IM STA (23:57)
[2023-01-14] VITALS: BP 143/93
--- NOTE | 2023-01-14 00:15 | NUR ---
PARTS FACILITATOR PT WITH MULTIPLE ATTEMPTS TO GET OUT BED; SWINGING LEGS OVER RAILS. SWINGING LEGS TOWARDS STAFF. PT HAS REMOVED GOWN AND ECG LEADS; DESPITE SOFT WRIST RESTRAINT. UNABLE TO REORIENT PT. SHUTTLE SPOTTER NOTIFIED WITH ORDER FOR ZYPREXA RECEIVED.
[2023-01-14 04:00] VITALS: BP 156/91
[2023-01-14] MEDS: CEFEPIME 1 GM in IV D5W 50 ML IV SCH (05:25)
[2023-01-14 06:14] LABS: BASOPHILS # (AUTO) 0.1 K/uL (0.0-0.2); BASOPHILS % (AUTO) 0.5 % (0.0-2.0); EOSINOPHILS % (AUTO) 0.2 % (0.0-6.0); HEMATOCRIT 38 % (39-51); HEMOGLOBIN 12.4 g/dL (13.5-17.5); LYMPHOCYTES # (AUTO) 1.8 K/uL (0.8-4.8); LYMPHOCYTES % (AUTO) 15.1 % (20.0-44.0); MEAN CORPUSCULAR HGB CONC 33 g/dl (31.0-36.0); MEAN CORPUSCULAR VOLUME 98 fL (80-96); MONOCYTES # (AUTO) 1.2 K/uL (0.1-1.30); MONOCYTES % (AUTO) 10.5 % (2.0-12.0); NEUTROPHILS # (AUTO) 8.7 K/uL (1.8-8.9); NEUTROPHILS % (AUTO) 73.7 % (43.0-81.0); PLATELET COUNT (AUTO) 355 K/uL (150-450); RED BLOOD CELL COUNT(AUTO) 3.89 MIL/uL (4.5-6.0); WHITE BLOOD COUNT (AUTO) 11.8 K/uL (4.3-11.0)
[2023-01-14 07:01] LABS: BILIRUBIN,TOTAL 0.8 mg/dL (0.2-1.0); CALCIUM, SERUM 8.9 mg/dL (8.5-10.1); CREATININE 0.8 mg/dL (0.6-1.3); MAGNESIUM 2.3 mg/dL (1.8-2.4); PHOSPHORUS 3.7 mg/dL (2.5-4.9); POTASSIUM 3.8 mmol/L (3.5-5.1); TOTAL PROTEIN, SERUM 7.2 g/dL (6.4-8.2)
--- NOTE | 2023-01-14 07:15 | NUR ---
NATUROPATHIC PHYSICIAN OPEN NOTE: AWAKE, EPISODE OF AGITATION AND MOANING, REPOSITIONED. ON 02 2LPM NC. SKATING RINK MANAGER SINUS RHYTHM 125 HEART RATE. LEFT ARM MIDLINE WITH NO S/S OF COMPLICATIONS. GT IN PLACE PATENT. MCKEE CATHETER IN PLACE WITH YELLOW URINE. KEPT CLEAN AND COMFORTABLE. LEFT SOFT WRIST RESTRAINT ON, CIRCULATION IS WITHIN NORMAL AND NO SKIN BREAKDOWN. HOB ELEVATED. SEMI-FOWLERS POSITION. BILATERAL HALF SIDE RAILS UPX2. BED IN LOW POSITION, LOCKED, EXIT ALARM ON. CALL LIGHT IN REACH.
[2023-01-14 07:29] LABS: THYROID STIMULATING HORMONE 3.2 uIU/mL (0.358-3.74)
[2023-01-14 08:00] VITALS: BP 173/97
[2023-01-14] MEDS: BLOOD SUGAR DIAGNOSTIC 1 EACH STRIP IN SCH ×4 (08:10→21:26)
[2023-01-14] MEDS: INSULIN REGULAR, HUMAN 100 UNIT/ML 3 ML VIAL SQ PRN ×3 (08:11→17:16)
[2023-01-14] MEDS: VALPROIC ACID 250 MG/5 ML UDC GT SCH ×3 (08:24→21:26)
[2023-01-14] MEDS: AMIODARONE HCL 200 MG TABLET GT SCH (08:24)
[2023-01-14] MEDS: FAMOTIDINE (20 MG) 20 MG TABLET GT SCH ×2 (08:25→17:22)
[2023-01-14] MEDS: LEVETIRACETAM SOL (5 ML) 100 MG/ML UDC GT SCH ×2 (08:25→17:22)
[2023-01-14] MEDS: METOPROLOL TARTRATE 25 MG TABLET GT SCH ×2 (08:25→17:21)
[2023-01-14] MEDS: QUETIAPINE FUMARATE 25 MG TABLET GT SCH ×3 (08:25→17:23)
[2023-01-14] MEDS: APIXABAN 2.5 MG TABLET GT SCH ×2 (08:26→17:23)
[2023-01-14] MEDS ORDERED: IV D5/0.45 NACL 1,000 ML IV SCH (10:00)
[2023-01-14] MEDS ORDERED: GLUCERNA 1.2 1,000 ML BOTTLE NG PRN (10:00)
[2023-01-14] MEDS ORDERED: FUROSEMIDE 20 MG/2 ML VIAL IV SCH (11:00)
[2023-01-14] MEDS ORDERED: POTASSIUM CHLORIDE 20 MEQ POWDER PACKET NG SCH (11:00)
[2023-01-14 12:00] VITALS: BP 97/72
[2023-01-14 16:00] VITALS: BP 111/78
--- NOTE | 2023-01-14 18:45 | NUR ---
COURT MONITOR CLOSING NOTE: CONFUSED. INTERMITTENT EPISODES OF BEING AWAKE AND SLEEPING THROUGHOUT DAY. ON 032 2LPM NC SATING AT 98%. CRYSTAL FLAT GRINDER A.FLUTTER. LEFT UPPER ARM MIDLINE PATENT. NO S/S OF COMPLICATIONS. GT IN PLACE PATENT WITH GLUCERNA AT 1.2 ML/HR. TOLERATING GT FEEDING WELL. ASPIRATION PRECAUTIONS MAINTAINED. MCKEE CATHETER IN PLACE DRAINING YELLOW URINE. LEFT HAND WITH SOFT WRIST RESTRAINT WITH NO SKIN BREAKDOWN, CIRCULATION ADEQUATE. RIGHT FOREARM WOUND KEPT CLEAN AND DRY. TOTAL CARE PROVIDED, TURNED AND REPOSITIONED. HOB ELEVATED. BILATERAL HALF SIDE RAILS UPX2. BED IN LOW POSITION, LOCKED, AND EXIT ALARM ON. CALL LIGHT WITHIN REACH. NO S/S OF HYPO OR HYPERGLYCEMIA.
[2023-01-14 20:00] VITALS: BP 136/69
[2023-01-15] VITALS: BP 140/78
[2023-01-15] MEDS: MORPHINE SULFATE INJ 2 MG/ML DISP.SYRIN IVP PRN ×2 (01:02→06:52)
[2023-01-15] MEDS ORDERED: OLANZAPINE 10 MG VIAL IM ONE ×2 (01:30→04:25)
[2023-01-15 04:00] VITALS: BP 134/72
[2023-01-15] MEDS: CEFEPIME 1 GM in IV D5W 50 ML IV SCH (05:23)
[2023-01-15 07:23] LABS: ALBUMIN 2.7 g/dL (3.4-5.0); BILIRUBIN,TOTAL 0.5 mg/dL (0.2-1.0); CREATININE 0.9 mg/dL (0.6-1.3); MAGNESIUM 2.3 mg/dL (1.8-2.4); PHOSPHORUS 3.6 mg/dL (2.5-4.9); POTASSIUM 3.2 mmol/L (3.5-5.1); TOTAL PROTEIN, SERUM 6.5 g/dL (6.4-8.2)
[2023-01-15 08:00] VITALS: BP 125/79
[2023-01-15] MEDS: BLOOD SUGAR DIAGNOSTIC 1 EACH STRIP IN SCH ×2 (08:12→12:23)
[2023-01-15] MEDS ORDERED: POTASSIUM CHLORIDE 20 MEQ POWDER PACKET GT ONE (09:00)
[2023-01-15] MEDS: VALPROIC ACID 250 MG/5 ML UDC GT SCH (09:07)
[2023-01-15] MEDS: LEVETIRACETAM SOL (5 ML) 100 MG/ML UDC GT SCH (09:07)
[2023-01-15] MEDS: AMIODARONE HCL 200 MG TABLET GT SCH (09:08)
[2023-01-15] MEDS: FAMOTIDINE (20 MG) 20 MG TABLET GT SCH (09:09)
[2023-01-15] MEDS: APIXABAN 2.5 MG TABLET GT SCH (09:10)
[2023-01-15] MEDS: QUETIAPINE FUMARATE 25 MG TABLET GT SCH ×2 (09:28→12:07)
[2023-01-15] MEDS: METOPROLOL TARTRATE 25 MG TABLET GT SCH (09:29)
[2023-01-15 09:41] LABS: ABG BASE EXCESS 12.4 mmol/L; ABG PCO2 50.7 mmHg (35.0-45.0); ABG PO2 74.1 mmHg (75.0-100.0); AaDO2 65.7 mmHg; COHb 0.8 % (0.5-1.5); MetHb 0.3 % (0.0-1.5); SITE, ABG Right Radial
[2023-01-15 12:00] VITALS: BP 117/82
--- NOTE | 2023-01-16 11:01 | NUR ---
CARL Note: Patient discharged from the hospital and SW unable to consult pt.
== END 2023-01-15 14:10 | DRG 393 ==
LOC: ER 03:25 → TELE1 08:09
PROVIDERS: ADMIT Internal Medicine; ATTEND Internal Medicine
PROC: 0D20XUZ Change Feeding Device in Upper Intestinal Tract, External Approach (ICD-10-PCS; principal; 2023-01-13)
DX: K94.23 Gastrostomy malfunction (principal); E43 Unspecified severe protein-calorie malnutrition; G93.41 Metabolic encephalopathy; I50.33 Acute on chronic diastolic (congestive) heart failure; D68.59 Other primary thrombophilia; F03.93 Unspecified dementia, unspecified severity, with mood disturbance; J98.11 Atelectasis; I11.0 Hypertensive heart disease with heart failure; Z20.822 Contact with and (suspected) exposure to COVID-19; Z86.73 Personal history of transient ischemic attack (TIA), and cerebral infarction without residual deficits; I48.91 Unspecified atrial fibrillation; Z79.4 Long term (current) use of insulin; Z79.01 Long term (current) use of anticoagulants; Z79.51 Long term (current) use of inhaled steroids; Z79.899 Other long term (current) drug therapy; Y83.3 Surgical operation with formation of external stoma as the cause of abnormal reaction of the patient, or of later complication, without mention of misadventure at the time of the procedure; Y92.129 Unspecified place in nursing home as the place of occurrence of the external cause; D63.8 Anemia in other chronic diseases classified elsewhere; E11.9 Type 2 diabetes mellitus without complications; K21.9 Gastro-esophageal reflux disease without esophagitis; E88.09 Other disorders of plasma-protein metabolism, not elsewhere classified; G40.909 Epilepsy, unspecified, not intractable, without status epilepticus; F32.9 Major depressive disorder, single episode, unspecified; R13.10 Dysphagia, unspecified; Z74.09 Other reduced mobility; Z87.440 Personal history of urinary (tract) infections; Z86.19 Personal history of other infectious and parasitic diseases; R09.02 Hypoxemia
CPT/HCPCS: 36415; 36600; 71045-TC; 80048-TC; 80053-TC; 80076-TC; 81001; 82803-TC; 82962-TC; 83605-TC; 83735-TC; 83880; 84100-TC; 84443-TC; 84484-TC; 85025-TC; 85730-TC; 87040-TC; 87081-TC; A4223; C9803; G0378; J0692; J1815; J1940; J1953; J2270; J3480; J3490; J7050; J7060

== ENCOUNTER 2023-04-20 02:55 | Inpatient (IN) | payer MEDICARE, OTHER ==
[~2023-04-20] VITALS: Ht 180.3 cm; Wt 81.7 kg
[2023-04-20] VITALS (18 sets, daily range): BP systolic 107–145; BP diastolic 63–106
[~2023-04-20 02:55] MED LIST changes: -ACET100V5 NEB; -ATOR40TA GT; +MAGN400O6 GT; -MODAFINIL GT; -NUT.237L30 GT; +NUT.250L18 GT; -ONDA4TAB5 GT; -ZINC50TA65 GT
--- NOTE | 2023-04-20 03:10 | NUR ---
BIBVIRGILIO FROM [facility] FOR ALTERED MENTAL STATUS UNKNOWN LKW. AT BASELINE PT X1 AWAKE AND CONFUSED. PT CURRENTLY UNRESPONSIVE TO PAINFUL STIMULI.EMS ECG A-FLUTTER BS 167. HX OF CVA AND HEMIPLEGIA +GTUBE.PLACED IN ER BED 11 MD WAS AT BEDSIDE FOR EVAL.
[2023-04-20] MEDS ORDERED: PROTHROMBIN COMPLEX CONCENTR 500 UNIT VIAL IV ONE ×3 (03:12→07:30)
--- NOTE | 2023-04-20 03:26 | NUR ---
16FR MCKEE CATHETER INSERTED AND SECURED. 30ML YELLOW URINE. URINE SPECIMIN COLLECTED AND SENT TO LAB
--- NOTE | 2023-04-20 03:28 | NUR ---
ADMISSION MOVE SHEET SUBMITTED
--- NOTE | 2023-04-20 03:50 | NUR ---
Not able to assess patients mental status. Edema and weak extremities. IV placed successfully, will continue to monitor. Patien with no signs of distress. All safety precautions taken.
--- NOTE | 2023-04-20 03:50 | NUR ---
Blood collected, sent to lab
[2023-04-20 03:59] LABS: BILIRUBIN,URINE NEGATIVE (NEGATIVE); COLOR,URINE DARK YELLOW (YELLOW); LEUKOCYTE ESTERASE ,URINE 2+ (NEGATIVE); NITRITE, URINE POSITIVE (NEGATIVE); PROTEIN,URINE TRACE mg/dl (NEGATIVE); UGLUCOSE NEGATIVE (NEGATIVE)
[2023-04-20 04:00] LABS: WBC,URINE TOO NUMEROUS TO COUN /HPF (0-3)
[2023-04-20 04:01] LABS: BACTERIA,URINE MANY /HPF (None Seen); SQUAMOUS EPITHELIAL CELL,UR Few /HPF (None Seen)
--- NOTE | 2023-04-20 04:05 | NUR ---
Patient out for imaging.
[2023-04-20] MEDS ORDERED: CEFEPIME 1 GM VIAL ONE (04:14)
[2023-04-20 04:24] LABS: CALCIUM, SERUM 9.6 mg/dL (8.5-10.1); CARBON DIOXIDE 31 mmol/L (21-32); CHLORIDE 103 mmol/L (98-107); CREATININE 0.8 mg/dL (0.6-1.3); GLUCOSE 131 mg/dL (74-106); POTASSIUM 4.5 mmol/L (3.5-5.1); SODIUM SERUM 139 mmol/L (136-145); UREA NITROGEN, BLOOD 24 mg/dL (7-18)
[2023-04-20 04:28] LABS: BASOPHILS % (AUTO) 0.4 % (0.0-2.0); EOSINOPHILS % (AUTO) 0.6 % (0.0-6.0); HEMATOCRIT 49 % (39-51); HEMOGLOBIN 15.6 g/dL (13.5-17.5); LYMPHOCYTES # (AUTO) 1.5 K/uL (0.8-4.8); LYMPHOCYTES % (AUTO) 14.6 % (20.0-44.0); MEAN CORPUSCULAR HGB CONC 32 g/dl (31.0-36.0); MEAN CORPUSCULAR VOLUME 98 fL (80-96); MONOCYTES # (AUTO) 0.8 K/uL (0.1-1.30); MONOCYTES % (AUTO) 7.7 % (2.0-12.0); NEUTROPHILS % (AUTO) 76.7 % (43.0-81.0); PLATELET COUNT (AUTO) 266 K/uL (150-450); RED BLOOD CELL COUNT(AUTO) 4.94 MIL/uL (4.5-6.0); WHITE BLOOD COUNT (AUTO) 10.4 K/uL (4.3-11.0)
[2023-04-20] MEDS ORDERED: VANCOMYCIN 1 GM /D5W 250 ML PB IV ONE (04:29)
[2023-04-20 04:30] LABS: ALANINE AMINOTRANSFERASE 53 U/L (12-78); ALBUMIN 2.8 g/dL (3.4-5.0); ALKALINE PHOSPHATASE 102 U/L (46-116); ASPARTATE AMINOTRANSFERASE 29 U/L (15-37); BILIRUBIN,DIRECT 0.2 mg/dL (0.0-0.2); BILIRUBIN,TOTAL 0.7 mg/dL (0.2-1.0); TOTAL PROTEIN, SERUM 7.3 g/dL (6.4-8.2)
[2023-04-20] MEDS ORDERED: CEFEPIME 1 GM in IV D5W 50 ML IV ONE (04:30)
[2023-04-20] MEDS ORDERED: VANCOMYCIN 1 GM in IV D5W 250 ML IV ONE (04:30)
[2023-04-20] MEDS ORDERED: IV NS 0.9% 1,000 ML IV ONE (04:30)
[2023-04-20 04:35] LABS: ALCOHOL, BLOOD < 3 mg/dL (0-10)
[2023-04-20 04:37] LABS: THYROID STIMULATING HORMONE 1.767 uIU/mL (0.358-3.74)
--- NOTE | 2023-04-20 04:41 | NUR ---
[facility] PAGED
--- NOTE | 2023-04-20 04:53 | NUR ---
CALLED [facility] AND SPOKE TO MELIDA. LAST 2.5 MG APIXIBAN GIVEN AT 1700 04/19.
[2023-04-20] MEDS ORDERED: NICARDIPINE IN DEXTROSE,ISO-OS 200 ML IV ONE (04:57)
[2023-04-20] MEDS ORDERED: ZOLPIDEM TARTRATE 5 MG TABLET PO PRN ×2 (05:00→06:00)
[2023-04-20] MEDS ORDERED: NICARDIPINE HCL 40 MG in IV NS 0.9% 184 ML IV PRN ×2 (05:00→06:00)
[2023-04-20] MEDS ORDERED: ACETAMINOPHEN 325 MG TABLET PO PRN (05:00)
[2023-04-20] MEDS ORDERED: Z GUARD REMEDY 4 OZ OINT TP PRN ×2 (05:00→06:00)
[2023-04-20] MEDS ORDERED: MAG HYDROX/AL HYDROX/SIMETH 30 ML UDC PO PRN ×2 (05:00→06:00)
[2023-04-20] MEDS ORDERED: BISACODYL SUPP (10 MG) 10 MG/SUPP.RECT SUPP.RECT RC PRN (05:00)
[2023-04-20] MEDS ORDERED: SENNOSIDES 8.6 MG TABLET GT PRN (05:00)
[2023-04-20] MEDS ORDERED: MAGNESIUM HYDROXIDE 30 ML UDC PO PRN ×3 (05:00→06:00)
[2023-04-20] MEDS ORDERED: ONDANSETRON HCL/PF 4 MG/2 ML VIAL IVP PRN ×2 (05:00→06:00)
[2023-04-20] MEDS ORDERED: DEXTROSE 50%-WATER 50 ML DISP.SYRIN IV PRN (05:00)
--- NOTE | 2023-04-20 05:24 | NUR ---
DR HERNANDEZ SPOKE TO FAMILY ON PHONE; WISHES FOR PT TO BE DNR/DNI
[2023-04-20] MEDS ORDERED: CEFTRIAXONE 1GM BAG (ER ONLY) 50 ML IV ONE (05:41)
[2023-04-20] MEDS: CEFTRIAXONE 1 G in IV D5W 50 ML IV SCH (05:42)
[2023-04-20] MEDS ORDERED: Medication Not On Formulary EA (Ipratropium/Albuterol Sulfate (Duoneb 2.5-0.5 Mg/3 Ml So IH SCH (06:00)
[2023-04-20] MEDS ORDERED: IV NS 0.9% 1,000 ML IV PRN (06:00)
--- NOTE | 2023-04-20 07:01 | NUR ---
Greg pending, pharm. will research and deliver
--- NOTE | 2023-04-20 07:30 | NUR ---
BED ASSIGNED 258
--- NOTE | 2023-04-20 07:57 | NUR ---
repoort given to samantha for continuation of care
[2023-04-20] MEDS ORDERED: NICARDIPINE IN NACL, ISO-OSM 200 ML IV PRN (08:30)
[2023-04-20] MEDS ORDERED: ACETAMINOPHEN 650 MG/20.3 ML UDC GT PRN (09:00)
[2023-04-20] MEDS ORDERED: ALBUTEROL HALF STRENGTH 1.25 MG/3 ML VIAL.NEB NEB PRN (09:00)
[2023-04-20] MEDS ORDERED: APIXABAN 2.5 MG TABLET GT SCH (09:00)
[2023-04-20] MEDS ORDERED: IPRATROPIUM NEB FS 0.5 MG/2.5 ML AMPUL.NEB IH PRN (09:00)
--- NOTE | 2023-04-20 09:08 | NUR ---
patient transferred via acls protocol
[2023-04-20] MEDS: POLYETHYLENE GLYCOL 3350 17 GM POWD.PACK GT SCH (10:19)
[2023-04-20] MEDS: VALPROIC ACID 250 MG/5 ML UDC GT SCH ×3 (10:19→21:33)
[2023-04-20] MEDS: ASCORBIC ACID 500 MG TABLET GT SCH (10:20)
[2023-04-20] MEDS: AMIODARONE HCL 200 MG TABLET GT SCH ×2 (10:20→10:37)
[2023-04-20] MEDS: ACIDOPHILUS/BULGARICUS 1 EACH TAB.CHEW GT SCH (10:20)
[2023-04-20] MEDS: FAMOTIDINE (20 MG) 20 MG TABLET GT SCH ×2 (10:20→16:29)
[2023-04-20] MEDS: LEVETIRACETAM SOL (5 ML) 100 MG/ML UDC GT SCH ×2 (10:20→21:32)
[2023-04-20] MEDS: METOPROLOL TARTRATE 25 MG TABLET GT SCH ×3 (10:21→16:26)
[2023-04-20] MEDS ORDERED: POTA20PA3 GT (10:29)
[2023-04-20] MEDS ORDERED: AMIN30LI2 GT (10:29)
[2023-04-20] MEDS ORDERED: MAG30ORA GT (10:29)
[2023-04-20] MEDS ORDERED: APIX2.5T GT (10:29)
--- NOTE | 2023-04-20 10:35 | NUR ---
RN NOTES NOTIFIED DR. KWAN THAT PT'S BP IS AT 113/75 AND THAT METOPROLOL AND AMIODARONE IS SCHEDULED TO BE GIVEN. PER DR. KWAN, HOLD BOTH METOPROLOL AND AMIODARONE FOR NOW.
[2023-04-20] MEDS: GLUCERNA 1.2 1,000 ML BOTTLE NG PRN (11:21)
[2023-04-20] MEDS: BLOOD SUGAR DIAGNOSTIC 1 EACH STRIP IN SCH ×2 (11:22→16:30)
[2023-04-20] MEDS: INSULIN REGULAR, HUMAN 100 UNIT/ML 3 ML VIAL SQ PRN ×2 (11:30→16:39)
[2023-04-20] MEDS: IV NS 0.9% 1,000 ML IV PRN ×2 (11:43→22:04)
[2023-04-20] MEDS ORDERED: MANNITOL 12.5 GM/50 ML VIAL IV SCH (12:00)
[2023-04-20] MEDS: ALBUTEROL FS 2.5 MG/0.5 ML VIAL.NEB NEB SCH ×2 (13:30→20:04)
[2023-04-20] MEDS: IPRATROPIUM NEB FS 0.5 MG/2.5 ML AMPUL.NEB IH SCH ×2 (13:30→20:04)
--- NOTE | 2023-04-20 13:50 | NUR ---
RN NOTES NOTIFIED DR. VENTURA THAT SERUM OSMOLALITY WAS DRAWN BUT IT NEEDS TO BE SENT OUT INTERNAL LAB DOESN'T RUN THIS TEST. NOTIFIED DR. VENTURA. PER THE DOCTOR, PLEASE GIVE 3 DOSES OF THE MANNITOL AND DISCONTINUE AFTER.
[2023-04-20] MEDS: MANNITOL 25 GM in IV D5W 50 ML IV SCH ×2 (14:39→20:43)
--- NOTE | 2023-04-20 16:27 | NUR ---
ALEX NOTES HOLDING METOPROLOL AT THIS TIME. ORDERS ARE TO KEEP PT'S SBP BETWEEN 120-150. CURRENT BP IS 137/99. Addendum: 04/20/23 at 1923 by MIRNA MATTHEWS RN *137/90
[2023-04-20] MEDS: DEXAMETHASONE SOD PHOSPHATE 4 MG/ML VIAL IV SCH (17:41)
--- NOTE | 2023-04-20 19:16 | NUR ---
RN CLOSING NOTES PT LOOKS COMFORTABLE, VITALS WITHIN RANGE FOR PT'S CONDITION, NO VISUAL SIGNS OF PAIN AT THIS TIME. SPOKE TO PT'S FAMILY, THEY ARE KEEPING PT COMFORT CARE UNTIL FURTHER NOTICE. REPORT GIVEN TO CHASTITY JOHNSON FOR CONTINUATION OF CARE.
[2023-04-20] MEDS: QUETIAPINE FUMARATE 25 MG TABLET GT SCH (21:32)
[2023-04-20] MEDS: INSULIN GLARGINE, 100 UNIT/ML CARTRIDGE SQ SCH (22:03)
[2023-04-20] MEDS: ACETYLCYSTEINE 10% SOLN 400 MG/4 ML VIAL NEB SCH (22:56)
[2023-04-21] VITALS (24 sets, daily range): BP systolic 90–143; BP diastolic 67–103
[2023-04-21] MEDS ORDERED: DEXTROSE 50%-WATER 50 ML DISP.SYRIN IV PRN
[2023-04-21] MEDS: DEXAMETHASONE SOD PHOSPHATE 4 MG/ML VIAL IV SCH ×5 (00:10→23:58)
[2023-04-21] MEDS: BLOOD SUGAR DIAGNOSTIC 1 EACH STRIP IN SCH ×5 (00:28→23:56)
[2023-04-21] MEDS: INSULIN REGULAR, HUMAN 100 UNIT/ML 3 ML VIAL SQ PRN ×4 (00:30→17:44)
[2023-04-21] MEDS: IPRATROPIUM NEB FS 0.5 MG/2.5 ML AMPUL.NEB IH SCH ×4 (01:03→19:57)
[2023-04-21] MEDS: ALBUTEROL FS 2.5 MG/0.5 ML VIAL.NEB NEB SCH ×4 (01:03→19:57)
[2023-04-21] MEDS: MANNITOL 25 GM in IV D5W 50 ML IV SCH (02:08)
[2023-04-21 05:03] LABS: BASOPHILS % (AUTO) 0.1 % (0.0-2.0); HEMATOCRIT 45 % (39-51); HEMOGLOBIN 14.3 g/dL (13.5-17.5); LYMPHOCYTES # (AUTO) 0.5 K/uL (0.8-4.8); LYMPHOCYTES % (AUTO) 6.5 % (20.0-44.0); MEAN CORPUSCULAR HGB CONC 32 g/dl (31.0-36.0); MEAN CORPUSCULAR VOLUME 99 fL (80-96); MONOCYTES # (AUTO) 0.1 K/uL (0.1-1.30); NEUTROPHILS # (AUTO) 7.7 K/uL (1.8-8.9); NEUTROPHILS % (AUTO) 92.4 % (43.0-81.0); PLATELET COUNT (AUTO) 247 K/uL (150-450); RED BLOOD CELL COUNT(AUTO) 4.58 MIL/uL (4.5-6.0); WHITE BLOOD COUNT (AUTO) 8.3 K/uL (4.3-11.0)
[2023-04-21 05:18] LABS: CALCIUM, SERUM 9.3 mg/dL (8.5-10.1); CREATININE 0.8 mg/dL (0.6-1.3); MAGNESIUM 2.1 mg/dL (1.8-2.4); PHOSPHORUS 3.7 mg/dL (2.5-4.9); POTASSIUM 4.9 mmol/L (3.5-5.1)
[2023-04-21] MEDS: CEFTRIAXONE 1 G in IV D5W 50 ML IV SCH (05:26)
[2023-04-21] MEDS: GLUCERNA 1.2 1,000 ML BOTTLE NG PRN (06:01)
--- NOTE | 2023-04-21 07:06 | NUR ---
SUPERVISOR SEWING DEPARTMENT NOTE Patient is resting in bed. GCS E1V1M5, left pupils reactive to light 3mm but right pupil non-reactive to light and has irregular border. monitoring tech showed AF with HR 94/min, BP ~130/90mmHg. Spo2 100% with 5L oxygen via NC, no abnormal breathing pattern is noted. Patient is repositioned and bed elevated. Will continue monitoring and care,.
--- NOTE | 2023-04-21 07:19 | NUR ---
SUPERVISOR SANDING NOTE Tried titrate oxygen down to 3L, patient quickly desaturated to 85%. Increased oxygen back to 5L and keep observation.
[2023-04-21] MEDS: ACETYLCYSTEINE 10% SOLN 400 MG/4 ML VIAL NEB SCH ×3 (07:50→23:30)
[2023-04-21] MEDS: ACIDOPHILUS/BULGARICUS 1 EACH TAB.CHEW GT SCH (08:30)
[2023-04-21] MEDS: VALPROIC ACID 250 MG/5 ML UDC GT SCH ×3 (08:30→21:43)
[2023-04-21] MEDS: AMIODARONE HCL 200 MG TABLET GT SCH (08:30)
[2023-04-21] MEDS: LEVETIRACETAM SOL (5 ML) 100 MG/ML UDC GT SCH ×2 (08:30→21:43)
[2023-04-21] MEDS: FAMOTIDINE (20 MG) 20 MG TABLET GT SCH ×2 (08:31→17:24)
[2023-04-21] MEDS: METOPROLOL TARTRATE 25 MG TABLET GT SCH ×2 (08:31→17:24)
[2023-04-21] MEDS: POLYETHYLENE GLYCOL 3350 17 GM POWD.PACK GT SCH (08:31)
[2023-04-21] MEDS: ASCORBIC ACID 500 MG TABLET GT SCH (08:31)
[2023-04-21] MEDS: PROSOURCE / PROSTAT (PYXIS) 30 ML UDC GT SCH (09:20)
[2023-04-21] MEDS: IV NS 0.9% 1,000 ML IV PRN ×2 (11:23→23:47)
--- NOTE | 2023-04-21 19:15 | NUR ---
ICU/ENVIRONMENTAL ADVISER PT WAS EXTREMELY AGITATED, KICKING AND PULLING OFF CLOTHES. PT ALSO PULLED OUT ONE OF TWO IV'S. DAY RN YAHAIRA WAS ABLE TO GIVE MORPHINE IVP PRN FOR LOOKS LIKE PAIN. WILL CONTINUE TO MONITOR THIS PT AND HIS PAIN LEVEL.
[2023-04-21] MEDS: MORPHINE SULFATE INJ 2 MG/ML DISP.SYRIN IV PRN (19:17)
--- NOTE | 2023-04-21 21:29 | NUR ---
ICU/RECYCLER PT WAS ABLE TO PULL OUT BOTH PERIPHERAL IV'S, GOT AN ORDER TO PLACE MIDLINE. CALLED NURSING SUP. COMBS WHO THEN CALLED THE KLYSTROM TUBE TESTER MIDLINE NURSE IRLANDA WHO WAS ABLE TO COME IN AROUND [address] A LEFT UPPER ARM MIDLINE.
[2023-04-21] MEDS: QUETIAPINE FUMARATE 25 MG TABLET GT SCH (21:43)
[2023-04-21] MEDS: INSULIN GLARGINE, 100 UNIT/ML CARTRIDGE SQ SCH (22:31)
[2023-04-22] VITALS (21 sets, daily range): BP systolic 95–139; BP diastolic 49–93
[2023-04-22] MEDS: IPRATROPIUM NEB FS 0.5 MG/2.5 ML AMPUL.NEB IH SCH ×4 (01:24→20:17)
[2023-04-22] MEDS: ALBUTEROL FS 2.5 MG/0.5 ML VIAL.NEB NEB SCH ×4 (01:24→20:17)
[2023-04-22 04:51] LABS: HEMATOCRIT 42 % (39-51); HEMOGLOBIN 13.3 g/dL (13.5-17.5); LYMPHOCYTES # (AUTO) 0.6 K/uL (0.8-4.8); LYMPHOCYTES % (AUTO) 5.7 % (20.0-44.0); MEAN CORPUSCULAR HGB CONC 32 g/dl (31.0-36.0); MEAN CORPUSCULAR VOLUME 99 fL (80-96); MONOCYTES # (AUTO) 0.2 K/uL (0.1-1.30); NEUTROPHILS # (AUTO) 10.6 K/uL (1.8-8.9); NEUTROPHILS % (AUTO) 92.3 % (43.0-81.0); PLATELET COUNT (AUTO) 229 K/uL (150-450); RED BLOOD CELL COUNT(AUTO) 4.24 MIL/uL (4.5-6.0); WHITE BLOOD COUNT (AUTO) 11.4 K/uL (4.3-11.0)
[2023-04-22 04:54] LABS: CALCIUM, SERUM 9.2 mg/dL (8.5-10.1); CARBON DIOXIDE 34 mmol/L (21-32); CHLORIDE 110 mmol/L (98-107); CREATININE 0.8 mg/dL (0.6-1.3); GLUCOSE 146 mg/dL (74-106); POTASSIUM 4.8 mmol/L (3.5-5.1); SODIUM SERUM 147 mmol/L (136-145); UREA NITROGEN, BLOOD 25 mg/dL (7-18)
[2023-04-22] MEDS: DEXAMETHASONE SOD PHOSPHATE 4 MG/ML VIAL IV SCH ×3 (05:32→17:41)
[2023-04-22] MEDS: CEFTRIAXONE 1 G in IV D5W 50 ML IV SCH (05:32)
[2023-04-22] MEDS: BLOOD SUGAR DIAGNOSTIC 1 EACH STRIP IN SCH ×3 (05:33→17:37)
[2023-04-22] MEDS: INSULIN REGULAR, HUMAN 100 UNIT/ML 3 ML VIAL SQ PRN ×2 (06:04→13:13)
--- NOTE | 2023-04-22 07:00 | NUR ---
BRAKE ASSEMBLER NOTE Patient is resting in bed. GCS E2M1V5, left pupil reactive to light 4mm while right pupil is non-reactive to light, 5mm with irregular border. telemetry monitor showed Aflutter with HR 89/min. SBP is normal without vasopressors use. Left UA ML is in-situ, with NS running at 90mL/hr. Morrison is-insitu, collecting clear and yellowish urine. Will continue monitoring and care.
[2023-04-22] MEDS: ACETYLCYSTEINE 10% SOLN 400 MG/4 ML VIAL NEB SCH ×2 (07:47→12:39)
[2023-04-22] MEDS: FAMOTIDINE (20 MG) 20 MG TABLET GT SCH ×2 (08:12→17:33)
[2023-04-22] MEDS: ACIDOPHILUS/BULGARICUS 1 EACH TAB.CHEW GT SCH (08:12)
[2023-04-22] MEDS: METOPROLOL TARTRATE 25 MG TABLET GT SCH ×2 (08:12→17:33)
[2023-04-22] MEDS: VALPROIC ACID 250 MG/5 ML UDC GT SCH ×3 (08:12→21:17)
[2023-04-22] MEDS: ASCORBIC ACID 500 MG TABLET GT SCH (08:12)
[2023-04-22] MEDS: LEVETIRACETAM SOL (5 ML) 100 MG/ML UDC GT SCH ×2 (08:12→21:16)
[2023-04-22] MEDS: AMIODARONE HCL 200 MG TABLET GT SCH (08:13)
[2023-04-22] MEDS: POLYETHYLENE GLYCOL 3350 17 GM POWD.PACK GT SCH (08:13)
[2023-04-22] MEDS: PROSOURCE / PROSTAT (PYXIS) 30 ML UDC GT SCH (08:19)
[2023-04-22] MEDS: IV NS 0.9% 1,000 ML IV PRN ×2 (10:34→22:57)
[2023-04-22] MEDS: GLUCERNA 1.2 1,000 ML BOTTLE NG PRN (13:11)
[2023-04-22] MEDS: MORPHINE SULFATE INJ 2 MG/ML DISP.SYRIN IV PRN ×2 (15:51→20:02)
--- NOTE | 2023-04-22 19:00 | NUR ---
DOUGH CUTTING MACHINE OPERATOR NOTE Patient's GCS remains stable: E4V2M5. general intern showed Aflutter with HR 80-90/min. SBP<140mmHg all along. Weaned off oxygen with SPO2 >95%, no respratory distress noted. Patient is transferred to [facility]. Handover is given to ALEX Jacobsen for continuity of care.
--- NOTE | 2023-04-22 19:20 | NUR ---
RN OPENING NOTES RECEIVED PATIENT ON BED, AWAKE, OBTUNDED, RESTLESS. ON ROOM AIR SATING AT 97%. NO SOB NOTED. AFEBRILE. NO S/S OF DISTRESS NOTED. PATIENT WITH VICKY MID LINE FLUSHED WITH NS NO S/S OF INFILTRATION NOTED. RUNNING WITH NS @ 90 ML/HR. GTUBE PATENT INTACT, VERIFIED PLACEMENT BY AUSCULTATION, NO RESIDUAL NOTED UPON ASPIRATION, RUNNING WITH GLUCERNA 1.2 @ 55 ML/HR, HEAD OF BED KEPT ELEVATED. MCKEE CATHETER PATENT INTACT DRAINING WITH CLEAR YELLOW URINE VIA GRAVITY. ALL SAFETY MEASURE PROVIDED. BED IN LOWEST POSITION. LOCKED. CALL LIGHT WITH IN REACH
[2023-04-22] MEDS: QUETIAPINE FUMARATE 25 MG TABLET GT SCH (21:16)
--- NOTE | 2023-04-22 21:31 | NUR ---
RN NOTES PATIENT GRABBING HIS IV LINE, GTUBE LINE, NOTIFIED JENNIFER CHANDLER WITH NEW ORDER TO APPLY LEFT HAND MITTEN NOTED AND CARRIED OUT.
[2023-04-22] MEDS: INSULIN GLARGINE, 100 UNIT/ML CARTRIDGE SQ SCH (22:19)
[2023-04-23] VITALS: BP 112/71
--- NOTE | 2023-04-23 00:01 | NUR ---
RN NOTES BLOOD SUGAR 117 mg/dL, NO INSULIN COVERAGE PER SLIDING SCALE. NO S/S OF HYPOGLYCEMIA NOTED.
[2023-04-23] MEDS: ACETYLCYSTEINE 10% SOLN 400 MG/4 ML VIAL NEB SCH ×3 (00:04→14:34)
[2023-04-23] MEDS: DEXAMETHASONE SOD PHOSPHATE 4 MG/ML VIAL IV SCH ×4 (00:08→21:16)
[2023-04-23] MEDS: IPRATROPIUM NEB FS 0.5 MG/2.5 ML AMPUL.NEB IH SCH ×4 (01:52→20:23)
[2023-04-23] MEDS: ALBUTEROL FS 2.5 MG/0.5 ML VIAL.NEB NEB SCH ×4 (01:52→20:23)
[2023-04-23 04:00] VITALS: BP 135/84
[2023-04-23] MEDS: CEFTRIAXONE 1 G in IV D5W 50 ML IV SCH (05:35)
[2023-04-23] MEDS: BLOOD SUGAR DIAGNOSTIC 1 EACH STRIP IN SCH ×5 (05:59→23:17)
[2023-04-23] MEDS: INSULIN REGULAR, HUMAN 100 UNIT/ML 3 ML VIAL SQ PRN ×3 (06:00→11:52)
[2023-04-23 06:41] LABS: HEMATOCRIT 40 % (39-51); HEMOGLOBIN 12.9 g/dL (13.5-17.5); LYMPHOCYTES # (AUTO) 0.5 K/uL (0.8-4.8); LYMPHOCYTES % (AUTO) 4.6 % (20.0-44.0); MEAN CORPUSCULAR HGB CONC 33 g/dl (31.0-36.0); MEAN CORPUSCULAR VOLUME 98 fL (80-96); MONOCYTES # (AUTO) 0.3 K/uL (0.1-1.30); MONOCYTES % (AUTO) 2.8 % (2.0-12.0); NEUTROPHILS # (AUTO) 9.7 K/uL (1.8-8.9); NEUTROPHILS % (AUTO) 92.6 % (43.0-81.0); PLATELET COUNT (AUTO) 206 K/uL (150-450); RED BLOOD CELL COUNT(AUTO) 4.03 MIL/uL (4.5-6.0); WHITE BLOOD COUNT (AUTO) 10.5 K/uL (4.3-11.0)
[2023-04-23 06:43] LABS: CALCIUM, SERUM 8.5 mg/dL (8.5-10.1); CREATININE 0.7 mg/dL (0.6-1.3); POTASSIUM 4.4 mmol/L (3.5-5.1)
--- NOTE | 2023-04-23 07:34 | NUR ---
RECEIVED HAND OFF REPORT FROM NIGHTSHIFT ALEX GALLEGOS. WILL CONTINUE PLAN OF CARE AND ANTICIPATE NEEDS.
[2023-04-23 08:00] VITALS: BP 133/86
[2023-04-23] MEDS: PROSOURCE / PROSTAT (PYXIS) 30 ML UDC GT SCH (09:01)
[2023-04-23] MEDS: ACIDOPHILUS/BULGARICUS 1 EACH TAB.CHEW GT SCH (09:01)
[2023-04-23] MEDS: ASCORBIC ACID 500 MG TABLET GT SCH (09:01)
[2023-04-23] MEDS: FAMOTIDINE (20 MG) 20 MG TABLET GT SCH ×2 (09:01→16:17)
[2023-04-23] MEDS: POLYETHYLENE GLYCOL 3350 17 GM POWD.PACK GT SCH (09:01)
[2023-04-23] MEDS: VALPROIC ACID 250 MG/5 ML UDC GT SCH ×3 (09:01→21:16)
[2023-04-23] MEDS: LEVETIRACETAM SOL (5 ML) 100 MG/ML UDC GT SCH ×2 (09:01→21:15)
[2023-04-23] MEDS: AMIODARONE HCL 200 MG TABLET GT SCH (09:02)
[2023-04-23] MEDS: METOPROLOL TARTRATE 25 MG TABLET GT SCH ×2 (09:02→16:13)
[2023-04-23] MEDS: GLUCERNA 1.2 1,000 ML BOTTLE NG PRN (11:42)
[2023-04-23] MEDS: IV NS 0.9% 1,000 ML IV PRN (11:55)
[2023-04-23 12:00] VITALS: BP 131/89
[2023-04-23 16:00] VITALS: BP 139/95
--- NOTE | 2023-04-23 16:13 | NUR ---
METOPROLOL HELD. PER [facility] ORDER TO MAINTAIN 120-150 SYSTOLIC BLOOD PRESSURE. CURRENT BLOOD PRESSURE READING 139 SYSTOLIC.
--- NOTE | 2023-04-23 18:49 | NUR ---
RN CLOSING NOTES PATIENT REMAINS IN ROOM ON ROOM AIR WITH OXYGEN SATURATION IN HIGH 90S. ATTACHED TO TELE MONITOR READING A-FIB. MCKEE ATTACHED DRAINING OUTPUT. TUBE FEEDING RUNNING AT PRESCRIBED RATE, NO RESIDUALS NOTED. IV ACCESS MAINTAINED ON LEFT UPPER ARM MIDLINE INFUSING FLUIDS ORDERED. SAFETY MEASURES IMPLEMENTED, WILL ENDORSE TO NIGHTSHIFT RN FOR CONTINUATION OF CARE.
[2023-04-23 20:00] VITALS: BP 150/90
[2023-04-23] MEDS: QUETIAPINE FUMARATE 25 MG TABLET GT SCH (21:16)
[2023-04-23] MEDS: INSULIN GLARGINE, 100 UNIT/ML CARTRIDGE SQ SCH (23:16)
[2023-04-24] VITALS (7 sets, daily range): BP systolic 140–156; BP diastolic 82–106
[2023-04-24] MEDS: IV NS 0.9% 1,000 ML IV PRN ×2 (00:41→12:59)
[2023-04-24] MEDS: IPRATROPIUM NEB FS 0.5 MG/2.5 ML AMPUL.NEB IH SCH ×4 (02:33→19:51)
[2023-04-24] MEDS: ALBUTEROL FS 2.5 MG/0.5 ML VIAL.NEB NEB SCH ×3 (02:33→12:56)
[2023-04-24] MEDS: ACETYLCYSTEINE 10% SOLN 400 MG/4 ML VIAL NEB SCH ×4 (02:33→23:51)
[2023-04-24] MEDS: DEXAMETHASONE SOD PHOSPHATE 4 MG/ML VIAL IV SCH ×3 (05:08→21:18)
[2023-04-24] MEDS: CEFTRIAXONE 1 G in IV D5W 50 ML IV SCH (05:08)
[2023-04-24] MEDS: BLOOD SUGAR DIAGNOSTIC 1 EACH STRIP IN SCH ×4 (06:06→23:32)
[2023-04-24] MEDS: INSULIN REGULAR, HUMAN 100 UNIT/ML 3 ML VIAL SQ PRN ×4 (06:09→23:32)
--- NOTE | 2023-04-24 06:33 | NUR ---
END OF SHIFT, PATIENT ASLEEP AT THIS TIME, AT 2LPM VIA NC WITH O2 SAT LEVEL WNL, AFIB IN TELE MONITOR, VICKY IN PLACE PATENT AND INTACT, IVF ORDERED, INFUSING GTF ORDERED, NO RESIDUAL NOTED, TOLERATED WELL, WITH LEFT HAND SOFT MITTEN IN PLACE, FOR PATIENT PULLING TUBINGS, ABDOMINAL BINDER IN PLACE TO PROTECT GTF IN PLACE SINCE PATIENT TENT TO PULL TUBINGS, NO ABNORMALITY NOTED IN SKIN, NO CIRCULATION COMPROMISED, BED LOCKED AND IN LOWEST POSITION, S/R IP X2, REPOSITION Q2HRS, AND PRN, WILL ENDORSE CONTINUITY OF CARE TO ONCOMING NURSE.
[2023-04-24 07:01] LABS: BASOPHILS % (AUTO) 0.2 % (0.0-2.0); EOSINOPHILS % (AUTO) 0.1 % (0.0-6.0); HEMATOCRIT 44 % (39-51); HEMOGLOBIN 13.7 g/dL (13.5-17.5); LYMPHOCYTES # (AUTO) 0.4 K/uL (0.8-4.8); LYMPHOCYTES % (AUTO) 4.6 % (20.0-44.0); MEAN CORPUSCULAR HGB CONC 31 g/dl (31.0-36.0); MEAN CORPUSCULAR VOLUME 102 fL (80-96); MONOCYTES # (AUTO) 0.4 K/uL (0.1-1.30); MONOCYTES % (AUTO) 4.2 % (2.0-12.0); NEUTROPHILS # (AUTO) 8.8 K/uL (1.8-8.9); NEUTROPHILS % (AUTO) 90.9 % (43.0-81.0); PLATELET COUNT (AUTO) 153 K/uL (150-450); RED BLOOD CELL COUNT(AUTO) 4.28 MIL/uL (4.5-6.0); WHITE BLOOD COUNT (AUTO) 9.7 K/uL (4.3-11.0)
[2023-04-24 07:08] LABS: CALCIUM, SERUM 9.1 mg/dL (8.5-10.1); CARBON DIOXIDE 31 mmol/L (21-32); CHLORIDE 110 mmol/L (98-107); CREATININE 0.7 mg/dL (0.6-1.3); GLUCOSE 170 mg/dL (74-106); POTASSIUM 4.5 mmol/L (3.5-5.1); SODIUM SERUM 145 mmol/L (136-145); UREA NITROGEN, BLOOD 32 mg/dL (7-18)
--- NOTE | 2023-04-24 07:30 | NUR ---
APPLICATION SPEC AM NOTES RECEIVED PATIENT ON BED, AWAKE, OBTUNDED, RESTLESS. ON ROOM AIR SATING AT 95%. NO SOB NOTED. AFEBRILE. NO S/S OF DISTRESS NOTED. AFIB UNCONTROLLED, HR 126 ON MONITOR. NO SIGNS OF PAIN/DISCOMFORT, PATIENT WITH VIKCY MID LINE WITH NS AT 90 ML INFUSING WELL, SITE CLEAR. GTUBE PATENT INTACT, VERIFIED PLACEMENT BY AUSCULTATION, NO RESIDUAL, ONGOING GLUCERNA 1.2 @ 55 ML/HR, HEAD OF BED KEPT ELEVATED. MCKEE CATHETER PATENT INTACT DRAINING WITH CLEAR YELLOW URINE VIA GRAVITY. ALL SAFETY MEASURE PROVIDED. BED IN LOWEST POSITION. LOCKED. CALL LIGHT WITH IN REACH WILL CONT TO ERLINTOR.
--- NOTE | 2023-04-24 09:30 | NUR ---
RN NOTES DUE MEDS GIVEN
--- NOTE | 2023-04-24 09:30 | NUR ---
RN NOTES DUE MEDS GIVEN
[2023-04-24] MEDS: POLYETHYLENE GLYCOL 3350 17 GM POWD.PACK GT SCH (09:44)
[2023-04-24] MEDS: METOPROLOL TARTRATE 25 MG TABLET GT SCH ×2 (09:45→16:21)
--- NOTE | 2023-04-24 09:45 | NUR ---
RN NOTES PER MANUAL ARTS TEACHER, INCREASE GTF TO 70 ML/HR FOR 24 HRS
[2023-04-24] MEDS: FAMOTIDINE (20 MG) 20 MG TABLET GT SCH ×2 (09:46→16:18)
[2023-04-24] MEDS: ASCORBIC ACID 500 MG TABLET GT SCH (09:46)
[2023-04-24] MEDS: VALPROIC ACID 250 MG/5 ML UDC GT SCH ×3 (09:46→21:16)
[2023-04-24] MEDS: LEVETIRACETAM SOL (5 ML) 100 MG/ML UDC GT SCH ×2 (09:46→21:17)
[2023-04-24] MEDS: PROSOURCE / PROSTAT (PYXIS) 30 ML UDC GT SCH (09:47)
[2023-04-24] MEDS: ACIDOPHILUS/BULGARICUS 1 EACH TAB.CHEW GT SCH (09:47)
[2023-04-24] MEDS: AMIODARONE HCL 200 MG TABLET GT SCH (09:47)
[2023-04-24] MEDS: GLUCERNA 1.2 1,000 ML BOTTLE NG PRN (10:02)
[2023-04-24] MEDS: hydrALAZINE HCL IV 20 MG VIAL IV PRN (12:53)
--- NOTE | 2023-04-24 14:56 | NUR ---
follow up ct head 3x with radiology,they will check the order.will continue to ff up,consent obtained on chart,awaits head ct.
[2023-04-24] MEDS ORDERED: METOPROLOL TARTRATE 25 MG TABLET PO SCH (15:30)
[2023-04-24] MEDS: FUROSEMIDE 20 MG/2 ML VIAL IV SCH (16:18)
--- NOTE | 2023-04-24 19:30 | NUR ---
MANUAL WINDER OPENING NOTE RECEIVED PATIENT IN BED, A/O X0, NO S/S OF SOB OR DISTRESS NOTED, NO EVIDENCE OF PAIN NOTED AT THIS TIME, PATIENT IS CONECTED TO HEART MONITOR, PATIENT ON RESTRAINT (LEFT MITTEN) HAS VICKY MIDLINE FLUSHINF WELL , RUNNING NS @ 90ML/HR, PATIENT HAS G- TUBE INPLACE PATENT AND SECURED WITH ABD BINDER ON, INFUSING GLUCERNA 1.2 @ 70ML /HR X 24 HRS, O RESIDUAL NOTED, HOB ELEVATED, ASPIRATION PRECAUTIONS IN PLACE, SIDE RAILS UP X4, SKIN AND CIRCULATION ASSESSMENT DONE, WILL CONTINUE PLAN OF CARE
--- NOTE | 2023-04-24 20:05 | NUR ---
RN NOTES ALL NEEDS MET AT THIS TIME. PM CARE DONE. STABLE WILL ENDORSE TO NEXT SHIFT FOR LILLIAN.
[2023-04-24] MEDS: QUETIAPINE FUMARATE 25 MG TABLET GT SCH (21:17)
[2023-04-24] MEDS: METOPROLOL TARTRATE 25 MG TABLET PO SCH (21:18)
[2023-04-24] MEDS: INSULIN GLARGINE, 100 UNIT/ML CARTRIDGE SQ SCH (21:33)
[2023-04-25 00:57] VITALS: BP 98/65
[2023-04-25] MEDS: IPRATROPIUM NEB FS 0.5 MG/2.5 ML AMPUL.NEB IH SCH ×4 (01:55→20:34)
[2023-04-25] MEDS: IV NS 0.9% 1,000 ML IV PRN ×2 (02:20→20:16)
[2023-04-25] MEDS: CEFTRIAXONE 1 G in IV D5W 50 ML IV SCH (04:04)
[2023-04-25] MEDS: DEXAMETHASONE SOD PHOSPHATE 4 MG/ML VIAL IV SCH ×3 (04:04→21:09)
[2023-04-25 04:56] VITALS: BP 132/72
[2023-04-25] MEDS: GLUCERNA 1.2 1,000 ML BOTTLE NG PRN ×2 (05:22→13:49)
[2023-04-25] MEDS: BLOOD SUGAR DIAGNOSTIC 1 EACH STRIP IN SCH ×4 (05:42→23:12)
[2023-04-25] MEDS: INSULIN REGULAR, HUMAN 100 UNIT/ML 3 ML VIAL SQ PRN ×2 (05:43→17:19)
[2023-04-25 05:51] LABS: BASOPHILS % (AUTO) 0.3 % (0.0-2.0); HEMATOCRIT 45 % (39-51); HEMOGLOBIN 14.5 g/dL (13.5-17.5); LYMPHOCYTES # (AUTO) 0.4 K/uL (0.8-4.8); LYMPHOCYTES % (AUTO) 4.3 % (20.0-44.0); MEAN CORPUSCULAR HGB CONC 33 g/dl (31.0-36.0); MEAN CORPUSCULAR VOLUME 98 fL (80-96); MONOCYTES # (AUTO) 0.5 K/uL (0.1-1.30); MONOCYTES % (AUTO) 5.3 % (2.0-12.0); NEUTROPHILS # (AUTO) 8.9 K/uL (1.8-8.9); NEUTROPHILS % (AUTO) 90.1 % (43.0-81.0); PLATELET COUNT (AUTO) 215 K/uL (150-450); RED BLOOD CELL COUNT(AUTO) 4.55 MIL/uL (4.5-6.0); WHITE BLOOD COUNT (AUTO) 9.9 K/uL (4.3-11.0)
[2023-04-25 06:19] LABS: CALCIUM, SERUM 9.1 mg/dL (8.5-10.1); CARBON DIOXIDE 36 mmol/L (21-32); CHLORIDE 104 mmol/L (98-107); CREATININE 0.8 mg/dL (0.6-1.3); GLUCOSE 120 mg/dL (74-106); POTASSIUM 3.7 mmol/L (3.5-5.1); SODIUM SERUM 145 mmol/L (136-145); UREA NITROGEN, BLOOD 33 mg/dL (7-18)
--- NOTE | 2023-04-25 07:02 | NUR ---
PURIFICATION OPERATOR HELPER CLOSING NOTE PATIENT IN BED, A/O XO, NO S/S OF SOB OR DISTRESS NOTED, ALL DUE MEDS GIVEN PER MD ORDER, TOLERATED WELL, PATIENT IVF VICKY MID LINE 90ML/HR NS CONT. PATIENT ON GTUBE ON GLUCERNA 1.2 @ 70ML/HR, MCKEE FLOWING CLEAR YELLOW URINE, ALL SAFETY MEASURES IN PLACE, SIDE RAILS UP X4, BED ALARM ARMED, BED IN LOWEST POSITION, WILL ENDORCE LILLIAN TO AM SHIFT RN
--- NOTE | 2023-04-25 07:45 | NUR ---
BLOCK SAW OPERATOR AM NOTES RECEIVED PATIENT ON BED, AWAKE, , RESTLESS. ON ROOM AIR SATING Above 92%%. NO SOB NOTED at this time AFEBRILE. NO S/S OF DISTRESS NOTED. AFIB UNCONTROLLED,ON tele MONITOR. NO SIGNS OF PAIN/DISCOMFORT, PATIENT WITH VICKY MID LINE iv intact, patent and flushing well.,GTUBE PATENT INTACT, VERIFIED PLACEMENT BY AUSCULTATION, NO RESIDUAL, GLUCERNA 1.2 @ 55 ML/HR, HEAD OF BED KEPT ELEVATED. MCKEE CATHETER PATENT INTACT DRAINING WITH CLEAR YELLOW URINE VIA GRAVITY. ALL SAFETY MEASURE PROVIDED. BED IN LOWEST POSITION. LOCKED. CALL LIGHT WITH IN REACH.bed alarm on
[2023-04-25 08:00] VITALS: BP 128/87
[2023-04-25] MEDS: ACETYLCYSTEINE 10% SOLN 400 MG/4 ML VIAL NEB SCH ×3 (08:09→22:44)
[2023-04-25] MEDS: AMIODARONE HCL 200 MG TABLET GT SCH (08:42)
[2023-04-25] MEDS: VALPROIC ACID 250 MG/5 ML UDC GT SCH ×3 (08:42→21:08)
[2023-04-25] MEDS: POLYETHYLENE GLYCOL 3350 17 GM POWD.PACK GT SCH (08:42)
[2023-04-25] MEDS: METOPROLOL TARTRATE 25 MG TABLET PO SCH ×2 (08:43→21:09)
[2023-04-25] MEDS: FAMOTIDINE (20 MG) 20 MG TABLET GT SCH ×2 (08:43→16:34)
[2023-04-25] MEDS: LEVETIRACETAM SOL (5 ML) 100 MG/ML UDC GT SCH ×2 (08:43→21:07)
[2023-04-25] MEDS: ASCORBIC ACID 500 MG TABLET GT SCH (08:43)
[2023-04-25] MEDS: FUROSEMIDE 20 MG/2 ML VIAL IV SCH ×2 (08:43→16:34)
[2023-04-25] MEDS: PROSOURCE / PROSTAT (PYXIS) 30 ML UDC GT SCH (08:56)
[2023-04-25] MEDS: ACIDOPHILUS/BULGARICUS 1 EACH TAB.CHEW GT SCH (10:22)
[2023-04-25 12:00] VITALS: BP 128/90
[2023-04-25 16:00] VITALS: BP 137/92
--- NOTE | 2023-04-25 19:26 | NUR ---
FOUNDRY MOLDER CLOSING NOTES PATIENT ON BED, AWAKE,, RESTLESS. ON 2L NASAL CANNULA SATING AT 98%. NO SOB NOTED at this time AFEBRILE. NO S/S OF DISTRESS NOTED. AFIB UNCONTROLLED,ON tele MONITOR. NO SIGNS OF PAIN/DISCOMFORT AT THIS TIME, PATIENT WITH VICKY MID LINE iv intact, patent and flushing well.,GTUBE PATENT INTACT, NO RESIDUAL, GLUCERNA 1.2 @ 70 ML/HR, HEAD OF BED KEPT ELEVATED. MCKEE CATHETER PATENT INTACT DRAINING WITH CLEAR YELLOW URINE VIA GRAVITY. ALL SAFETY MEASURE PROVIDED. BED IN LOWEST POSITION. LOCKED. CALL LIGHT WITH IN REACH.bed alarm on.ENDORSED TO BULLDOZER MECHANIC RN FOR CONTUITY OF CARE Addendum: 04/25/23 at 1927 by JENNIFER MUNGUIA RN left mitten restraint in place. no signs of skin or circulation issues noted at this time
--- NOTE | 2023-04-25 19:30 | NUR ---
WEB MARKETING ANALYST OPENING NOTE RECEIVED PATIENT IN BED, A/O X0, NO S/S OF SOB OR DISTRESS NOTED, NO EVIDENCE OF PAIN NOTED AT THIS TIME, PATIENT IS CONECTED TO HEART MONITOR SHOWING SINUS TACH 118BPM, PATIENT ON RESTRAINT (LEFT MITTEN) TO PREVENT PULLING ON IV TUBING, HAS VICKY MIDLINE FLUSHINF WELL , RUNNING NS @ 90ML/HR, PATIENT HAS G- TUBE INPLACE PATENT AND SECURED WITH ABD BINDER ON, INFUSING GLUCERNA 1.2 @ 70ML /HR X 24 HRS, O RESIDUAL NOTED, HOB ELEVATED, ASPIRATION PRECAUTIONS IN PLACE, SIDE RAILS UP X4, SKIN AND CIRCULATION ASSESSMENT DONE, WILL CONTINUE PLAN OF CARE
[2023-04-25 20:00] VITALS: BP 155/87
[2023-04-25] MEDS: QUETIAPINE FUMARATE 25 MG TABLET GT SCH (21:08)
[2023-04-25] MEDS: INSULIN GLARGINE, 100 UNIT/ML CARTRIDGE SQ SCH (21:11)
--- NOTE | 2023-04-25 23:17 | NUR ---
SUPERVISOR EDGING NOTE PATIENT BLOOD SUGAR CHECKED, READING 126, ZERO INSULIN COVERAGE NEEDED PER SLIDING SCALE.
[2023-04-26 00:46] VITALS: BP 121/74
[2023-04-26] MEDS: IPRATROPIUM NEB FS 0.5 MG/2.5 ML AMPUL.NEB IH SCH ×3 (01:12→13:36)
[2023-04-26 04:00] VITALS: BP 119/86
[2023-04-26] MEDS: CEFTRIAXONE 1 G in IV D5W 50 ML IV SCH (04:47)
[2023-04-26] MEDS: DEXAMETHASONE SOD PHOSPHATE 4 MG/ML VIAL IV SCH ×2 (04:49→12:24)
[2023-04-26] MEDS: GLUCERNA 1.2 1,000 ML BOTTLE NG PRN (04:56)
[2023-04-26] MEDS: BLOOD SUGAR DIAGNOSTIC 1 EACH STRIP IN SCH ×2 (05:01→11:45)
--- NOTE | 2023-04-26 05:04 | NUR ---
YA NOTE PATIENT NOTED WITH LOW BP 82/46. MD KWAN MADE AWARE, NO NEW ORDERS AT THIS TIME Addendum: 04/26/23 at 0506 by TEQUILA KAUR LVN WRONG ENTRY [id number]
--- NOTE | 2023-04-26 06:24 | NUR ---
PATIENT PORTAL REPRESENTATIVE CLOSING NOTE PATIENT IN BED, A/O XO, NO S/S OF SOB OR DISTRESS NOTED, ALL DUE MEDS GIVEN PER MD ORDER, TOLERATED WELL, PATIENT IVF VICKY MID LINE 90ML/HR NS CONT. PATIENT ON GTUBE ON GLUCERNA 1.2 @ 70ML/HR, MCKEE FLOWING CLEAR YELLOW URINE, ALL SAFETY MEASURES IN PLACE, SIDE RAILS UP X4, BED ALARM ARMED, BED IN LOWEST POSITION, WILL ENDORSE LILLIAN TO AM SHIFT RN
[2023-04-26 06:38] LABS: BASOPHILS % (AUTO) 0.1 % (0.0-2.0); HEMATOCRIT 44 % (39-51); HEMOGLOBIN 14.2 g/dL (13.5-17.5); LYMPHOCYTES # (AUTO) 0.5 K/uL (0.8-4.8); LYMPHOCYTES % (AUTO) 5.5 % (20.0-44.0); MEAN CORPUSCULAR HGB CONC 32 g/dl (31.0-36.0); MEAN CORPUSCULAR VOLUME 98 fL (80-96); MONOCYTES # (AUTO) 0.4 K/uL (0.1-1.30); MONOCYTES % (AUTO) 4.8 % (2.0-12.0); NEUTROPHILS # (AUTO) 7.7 K/uL (1.8-8.9); NEUTROPHILS % (AUTO) 89.6 % (43.0-81.0); PLATELET COUNT (AUTO) 197 K/uL (150-450); RED BLOOD CELL COUNT(AUTO) 4.47 MIL/uL (4.5-6.0); WHITE BLOOD COUNT (AUTO) 8.6 K/uL (4.3-11.0)
[2023-04-26 06:46] LABS: CREATININE 0.8 mg/dL (0.6-1.3); POTASSIUM 3.8 mmol/L (3.5-5.1)
--- NOTE | 2023-04-26 07:30 | NUR ---
MANAGER OF CLINICAL opening NOTES PATIENT ON BED, AWAKE,, RESTLESS. ON 2L NASAL CANNULA SATING AT 98%. NO SOB NOTED at this time . NO S/S OF DISTRESS NOTED. ON tele MONITOR. NO SIGNS OF PAIN/DISCOMFORT AT THIS TIME, PATIENT WITH VICKY MID LINE iv intact, patent and flushing well.,GTUBE PATENT INTACT, NO RESIDUAL, GLUCERNA 1.2 @ 70 ML/HR, HEAD OF BED KEPT ELEVATED. MCKEE CATHETER PATENT INTACT DRAINING WITH CLEAR YELLOW URINE VIA GRAVITY. left mitten restraints, no skin or circulation issues noted at this time. ALL SAFETY MEASURE PROVIDED. BED IN LOWEST POSITION. LOCKED. CALL LIGHT WITH IN REACH.bed alarm on. Addendum: 04/26/23 at 0741 by JENNIFER MUNGUIA RN SINUS TACHY 120 ON TELE MONITOR AT THIS TIME
[2023-04-26] MEDS: ACETYLCYSTEINE 10% SOLN 400 MG/4 ML VIAL NEB SCH ×2 (07:50→13:37)
[2023-04-26 08:00] VITALS: BP 149/98
[2023-04-26] MEDS: AMIODARONE HCL 200 MG TABLET GT SCH (08:49)
[2023-04-26] MEDS: FAMOTIDINE (20 MG) 20 MG TABLET GT SCH (08:50)
[2023-04-26] MEDS: VALPROIC ACID 250 MG/5 ML UDC GT SCH (08:50)
[2023-04-26] MEDS: LEVETIRACETAM SOL (5 ML) 100 MG/ML UDC GT SCH (08:50)
[2023-04-26] MEDS: FUROSEMIDE 20 MG/2 ML VIAL IV SCH (08:50)
[2023-04-26] MEDS: ACIDOPHILUS/BULGARICUS 1 EACH TAB.CHEW GT SCH (08:50)
[2023-04-26] MEDS: ASCORBIC ACID 500 MG TABLET GT SCH (08:50)
[2023-04-26] MEDS: POLYETHYLENE GLYCOL 3350 17 GM POWD.PACK GT SCH (08:50)
[2023-04-26] MEDS: METOPROLOL TARTRATE 25 MG TABLET PO SCH (08:51)
[2023-04-26] MEDS: PROSOURCE / PROSTAT (PYXIS) 30 ML UDC GT SCH (08:54)
[2023-04-26] MEDS ORDERED: VALP250S22 GT ×2 (11:00)
[2023-04-26] MEDS ORDERED: DEXA4TAB PO (11:00)
[2023-04-26] MEDS ORDERED: CEFT1FRO2 IV (11:03)
[2023-04-26] MEDS: IV NS 0.9% 1,000 ML IV PRN (11:55)
[2023-04-26 12:00] VITALS: BP 130/79
--- NOTE | 2023-04-26 13:20 | NUR ---
rn note report given to Priscilla at [facility] [phone]
[2023-04-26 16:10] VITALS: BP 146/107
[2023-04-26] MEDS: hydrALAZINE HCL IV 20 MG VIAL IV PRN (16:10)
--- NOTE | 2023-04-26 17:07 | NUR ---
WOOL HAT FORMING MACHINE TENDER NOTE pt left in stable condition. removed tele monitor box, kept midline due to pt receiving iv antibotics for two more days. removed norwood cathether. all discharge instructions, medications, health teachings went over with family member,verbalized understanding. picked up by ambulance, all belongings with family. family aware of discharge
== END 2023-04-26 16:24 | DRG 64 ==
LOC: ER 03:11 → ICU 08:06 → TELE-TD 04-22 18:50 → TELE1 04-23 15:59
PROVIDERS: ADMIT Nurse Practitioner Acute Care; ATTEND Nurse Practitioner Acute Care
PROC: 05HA33Z Insertion of Infusion Device into Left Brachial Vein, Percutaneous Approach (ICD-10-PCS; principal; 2023-04-21)
DX: I60.9 Nontraumatic subarachnoid hemorrhage, unspecified (principal); E43 Unspecified severe protein-calorie malnutrition; G93.41 Metabolic encephalopathy; G93.5 Compression of brain; G93.6 Cerebral edema; J96.21 Acute and chronic respiratory failure with hypoxia; N17.0 Acute kidney failure with tubular necrosis; I63.312 Cerebral infarction due to thrombosis of left middle cerebral artery; N39.0 Urinary tract infection, site not specified; D68.59 Other primary thrombophilia; I69.251 Hemiplegia and hemiparesis following other nontraumatic intracranial hemorrhage affecting right dominant side; R47.01 Aphasia; E87.20 Acidosis, unspecified; I47.1 Supraventricular tachycardia; J98.11 Atelectasis; I10 Essential (primary) hypertension; Z20.822 Contact with and (suspected) exposure to COVID-19; Z93.1 Gastrostomy status; E11.9 Type 2 diabetes mellitus without complications; Z79.4 Long term (current) use of insulin; Z79.51 Long term (current) use of inhaled steroids; Z79.01 Long term (current) use of anticoagulants; Z79.899 Other long term (current) drug therapy; F01.50 Vascular dementia, unspecified severity, without behavioral disturbance, psychotic disturbance, mood disturbance, and anxiety; E78.5 Hyperlipidemia, unspecified; R13.10 Dysphagia, unspecified; Z74.09 Other reduced mobility; I48.0 Paroxysmal atrial fibrillation; G93.9 Disorder of brain, unspecified; B96.89 Other specified bacterial agents as the cause of diseases classified elsewhere; D72.829 Elevated white blood cell count, unspecified; E88.09 Other disorders of plasma-protein metabolism, not elsewhere classified; K21.9 Gastro-esophageal reflux disease without esophagitis; Z51.5 Encounter for palliative care; Z66 Do not resuscitate; Z99.81 Dependence on supplemental oxygen; T38.0X5A Adverse effect of glucocorticoids and synthetic analogues, initial encounter; Y92.9 Unspecified place or not applicable
CPT/HCPCS: 31720; 36410; 36415; 70450-TC; 71045-TC; 80048-TC; 80076-TC; 80164-TC; 81001; 82962-TC; 83605-TC; 83735-TC; 84100-TC; 84443-TC; 84484-TC; 85025-TC; 85730-TC; 87040-TC; 87086-TC; 94799-TC; A4223; A4629; C9803; G0378; G0480; J0360; J0692; J0696; J1100; J1815; J1940; J1953; J2150; J2270; J3370; J7030; J7040; J7050; J7060; J7168